=== PATIENT | male | born 1950 | race Hispanic/Latino ===

== ENCOUNTER 2019-06-05 12:18 | Observation (INO) | payer OTHER ==
[2019-06-05 13:22] LABS: Absolute Lymphocytes (CBC) 2.2 K/uL (0.7-4.9); Basophils % 0.9 % (0-1.3); Hematocrit 46.4 % (39.6-49.0); Lymphocytes % 28.9 % (15.3-44.8); MPV 8.9 fL (7.6-11.3); Protime INR 1.04; RBC Red Blood Cell Count 5.29 M/uL (4.33-5.43)
--- NOTE | 2019-06-05 13:37 | RAD REPORT ---
EXAM DESCRIPTION: RAD - Chest Single View - 06/05/2019 1:18 pm CLINICAL HISTORY: CHEST PAIN Chest pain. COMPARISON: CHEST SINGLE VIEW dated 03/17/2013; CHEST PA AND LAT 2 VIEW dated 03/23/2011; CHEST SINGL E VIEW dated 02/12/2011; CHEST SINGLE VIEW dated 11/14/2010 FINDINGS: Portable technique limits examination quality. The lungs are grossly clear. The heart is normal in size. No displaced fractures. IMPRESSION: No acute intrathoracic process suspected.
[2019-06-05 13:38] LABS: ALT/SGPT 34 U/L (12-78); AST/SGOT 21 U/L (15-37); Alkaline Phosphatase 108 U/L (45-117); BUN Blood Urea Nitrogen 13 mg/dL (7-18); Bicarbonate 31 mmol/L (21-32); Bilirubin Direct 0.2 mg/dL (0-0.2); Bilirubin Total 0.7 mg/dL (0.2-1.0); Glucose Level 92 mg/dL (74-106); Magnesium 2.1 mg/dL (1.8-2.4); NT PRO-BNP 74 pg/mL (<125); Potassium 4.1 mmol/L (3.5-5.1); Protein, Total 7.5 g/dL (6.4-8.2); Sodium Level 142 mmol/L (136-145); Troponin (Emerg Dept Use Only) < 0.02 ng/mL (0.0-0.045)
--- NOTE | 2019-06-05 13:43 | RAD REPORT ---
EXAM DESCRIPTION: CT - Head Brain Wo Cont - 06/05/2019 1:35 pm CLINICAL HISTORY: Dizziness;Headache Headache, drowsiness, CVA symptomology COMPARISON: CT HEAD BRAIN WWO CONTRAST dated 03/03/2011; SINUS W O CONTRAST dated 03/03/2011 TECHNIQUE: All CT scans are performed using dose optimization technique as appropriate and may inclu de automated exposure control or mA/KV adjustment according to patient size. FINDINGS: No intracranial hemorrhage, hydrocephalus or extra-axial fluid collection.No areas of brai n edema or evidence of midline shift. The paranasal sinuses and mastoids are clear. The calvarium is intact. IMPRESSION: No acute intracranial abnormality.
[2019-06-05] MEDS ORDERED: DIAZEPAM 5 MG TABLET ONE (15:08)
--- NOTE | 2019-06-05 15:52 | EKG ---
Test Date: 2019-06-05 Test Time: 12:58:03 Attorney Recruiter: CHARO MEASUREMENT RESULTS: Intervals: Rate: 61 [place]: 146 QRSD: 96 QT: 414 QTc: 416 Sullivan: P: 18 [place]: 146 QRS: 0 T: 15 INTERPRETIVE STATEMENTS: Normal sinus rhythm Nonspecific T wave abnormality Abnormal ECG Compared to ECG 03/18/2013 08:11:39 T-wave abnormality now present Incomplete right bundle-branch block no longer present Electronically Signed On 06-05-19 15:51:25 BUSINESS COMPUTERS TEACHER by Rj Elder
--- NOTE | 2019-06-05 16:16 | RAD REPORT ---
EXAM DESCRIPTION: MRI - Brain Wo Cont - 06/05/2019 3:54 pm CLINICAL HISTORY: DIZZINESS, weakness, hypertension COMPARISON: Head Brain Wo Cont dated 06/05/2019 TECHNIQUE: Sagittal T1-weighted images were obtained along with axial PD, heavily T2-weighted and T2 -FLAIR images. Axial DWI and ADC mapping sequences were also obtained along with coronal heavily T2-w eighted images. FINDINGS: No intracranial hemorrhage, mass or acute infarction. There is no edema or shift of midlin e structures. No extra-axial fluid collections. Canas-matter/white matter junction is preserved. Signa l voids are seen as a normal finding in the major intracranial vessels. Patient has minimal hyperinte nse T2 foci scattered in the cerebral white matter. These are consistent with chronic ischemic change . No significant atrophy identified. Ventricles are normal size. No sella or supra sella abnormality. No tonsillar ectopia. No globe or orbital content abnormality se en. Mastoid air cells and paranasal sinuses are clear. IMPRESSION: No infarction changes are present. No mass, hemorrhage or acute intracranial finding. Minimal chronic ischemic change.
[2019-06-05] MEDS ORDERED: MECLIZINE HCL 12.5 MG TAB ONE (16:21)
[2019-06-05] MEDS ORDERED: ONDANSETRON 4 MG/2 ML VIAL ONE (16:21)
[2019-06-05] MEDS ORDERED: DIAZEPAM 10 MG/2 ML INJ SYRINGE ONE (17:43)
--- NOTE | 2019-06-05 18:56 | EDPHYS ---
Physician Documentation [facility] Name: Jaspal Armstrong Age: 68 yrs Sex: Male : 1950 Arrival Date: 06/05/2019 Time: 12:20 Bed 24 Private MD: Tony Juarez ED Physician Robin Rodríguez HPI: 06/05 18:00 This 68 yrs old Male presents to ER via Ambulatory with complaints of Chest kdr Pressure, Dizziness. 18:00 The patient or guardian reports chest pain that is located primarily in the substernal kdr area, anterior chest wall, bilaterally, chest diffusely. Onset: gradually, 1 week(s) ago. The pain does not radiate. Associated signs and symptoms: Pertinent positives: dizziness, The patient has been intermittently dizzy over the past week. He has also had some chest pressure and n/v when there dizziness worsens.. Historical: - Allergies: 12:28 No Known Allergies; ca1 - PMHx: 12:28 Gastric Reflux; Hyperlipidemia; ca1 - PSHx: 12:28 Heart stents; Carpal Tunnel Repair; prostate surgery; cervical spine sx; ca1 - Immunization history:: Adult Immunizations up to date, Flu vaccine is not up to date. - Coronavirus screen:: The patient has NOT traveled to [place], [place], or [place] in the past 14 days. The patient has NOT had contact with known/suspected case of Coronavirus?. - Social history:: Smoking status: Patient denies any tobacco usage or history of. - Ebola Screening: : Patient negative for fever greater than or equal to 101.5 degrees Fahrenheit, and additional compatible Ebola Virus Disease symptoms Patient denies exposure to infectious person Patient denies travel to an Ebola-affected area in the 21 days before illness onset No symptoms or risks identified at this time. ROS: 19:21 Constitutional: Negative for fever, chills, and weight loss, Eyes: Negative for injury, kdr pain, redness, and discharge, ENT: Negative for injury, pain, and discharge, Neck: Negative for injury, pain, and swelling, Respiratory: Negative for shortness of breath, cough, wheezing, and pleuritic chest pain, Abdomen/GI: Negative for abdominal pain, nausea, vomiting, diarrhea, and constipation, Back: Negative for injury and pain, : Negative for injury, bleeding, discharge, and swelling, MS/Extremity: Negative for injury and deformity, Skin: Negative for injury, rash, and discoloration, Psych: Negative for depression, anxiety, suicide ideation, homicidal ideation, and hallucinations, Allergy/Immunology: Negative for hives, rash, and allergies, Endocrine: Negative for neck swelling, polydipsia, polyuria, polyphagia, and marked weight changes, Hematologic/Lymphatic: Negative for swollen nodes, abnormal bleeding, and unusual bruising. 19:21 Cardiovascular: Positive for chest pain, Negative for edema, orthopnea, palpitations, paroxysmal nocturnal dyspnea, acute changes. 19:21 Neuro: Positive for dizziness, Negative for altered mental status, gait disturbance, headache, hearing loss, loss of consciousness, speech changes, syncope, near syncope, tinnitus, tremor, visual changes. Exam: 19:21 Constitutional: This is a well developed, well nourished patient who is awake, alert, kdr and in no acute distress. Head/Face: Normocephalic, atraumatic. Eyes: Pupils equal round and reactive to light, extra-ocular motions intact. Lids and lashes normal. Conjunctiva and sclera are non-icteric and not injected. Cornea within normal limits. Periorbital areas with no swelling, redness, or edema. Neck: Trachea midline, no thyromegaly or masses palpated, and no cervical lymphadenopathy. Supple, full range of motion without nuchal rigidity, or vertebral point tenderness. No Meningismus. Chest/axilla: Normal chest wall appearance and motion. Nontender with no deformity. No lesions are appreciated. Cardiovascular: Regular rate and rhythm with a normal S1 and S2. No gallops, murmurs, or rubs. Normal PMI, no JVD. No pulse deficits. Respiratory: Lungs have equal breath sounds bilaterally, clear to auscultation and percussion. No rales, rhonchi or wheezes noted. No increased work of breathing, no retractions or nasal flaring. Abdomen/GI: Soft, non-tender, with normal bowel sounds. No distension or tympany. No guarding or rebound. No evidence of tenderness throughout. Back: No spinal tenderness. No costovertebral tenderness. Full range of motion. Skin: Warm, dry with normal turgor. Normal color with no rashes, no lesions, and no evidence of cellulitis. MS/ Extremity: Pulses equal, no cyanosis. Neurovascular intact. Full, normal range of motion. Neuro: Awake and alert, GCS 15, oriented to person, place, time, and situation. Cranial nerves II-XII grossly intact. Motor strength 5/5 in all extremities. Sensory grossly intact. Cerebellar exam normal. Normal gait. Psych: Awake, alert, with orientation to person, place and time. Behavior, mood, and affect are within normal limits. Vital Signs: 12:28 BP 126 / 55; Pulse 66; Resp 17 S; Temp 97.9(O); Pulse Ox 97% on R/A; Weight 100.7 kg ca1 (R); Height 5 ft. 4 in. (162.56 cm) (R); Pain 0/10; 13:30 BP 135 / 118; Pulse 63; Resp 15; Pulse Ox 96% on R/A; vc 14:30 BP 115 / 67; Pulse 94; Resp 16; Pulse Ox 94% on R/A; vc 16:00 BP 170 / 88; Pulse 61; Resp 19; Pulse Ox 98% on R/A; vc 17:00 BP 128 / 73; Pulse 59; Resp 19; Pulse Ox 97% on R/A; vc 17:45 BP 136 / 68; Pulse 61; Resp 16; Pulse Ox 94% ; vc 18:30 BP 132 / 65; Pulse 62; Resp 18; Pulse Ox 94% on R/A; vc 19:30 BP 130 / 66; Pulse 59; Pulse Ox 97% on R/A; vc 20:30 BP 135 / 65; Pulse 60; Resp 18; Pulse Ox 94% on R/A; vc 12:28 Body Mass Index 38.11 (100.70 kg, 162.56 cm) ca1 MDM: 18:54 Patient medically screened. kdr 19:20 Data reviewed: vital signs, nurses notes, lab test result(s), radiologic studies. kdr Counseling: I had a detailed discussion with the patient and/or guardian regarding: the historical points, exam findings, and any diagnostic results supporting the discharge/admit diagnosis, lab results, radiology results, the need for further work-up and treatment in the hospital. Physician consultation: Tony Juarez MD regarding admission, to the telemetry unit. and will see patient in inpatient room, tomorrow. Admission orders: after a detailed discussion of the patient's condition and case, the admit orders are written by me. 19:42 Physician consultation: Bebeto Alberto MD was called at 19:43, was contacted at 19:43, [facility] regarding consult, patient's condition, and will see patient in inpatient room, tomorrow, No new orders. 19:43 ED course: James Ronquillo negative - No improvement to right, increased n/v to the left.. [facility] 06/05 12:56 Order name: Basic Metabolic Panel; Complete Time: 15:36 [facility] 06/05 12:56 Order name: CBC with Diff; Complete Time: 15:36 [facility] 06/05 12:56 Order name: LFT's; Complete Time: 15:36 [facility] 06/05 12:56 Order name: Magnesium; Complete Time: 15:36 [facility] 06/05 12:56 Order name: NT PRO-BNP; Complete Time: 15:36 [facility] 06/05 12:56 Order name: PT-INR; Complete Time: 15:36 [facility] 06/05 12:56 Order name: Troponin (emerg Dept Use Only); Complete Time: 15:36 [facility] 06/05 19:04 Order name: Basic Metabolic Panel EDAL 06/05 19:04 Order name: Basic Metabolic Panel EDAL 06/05 19:04 Order name: CBC with Automated Diff EDMS 06/05 19:04 Order name: CBC with Automated Diff EDMS 06/05 19:04 Order name: Troponin I EDAL 06/05 19:04 Order name: Troponin I EDAL 06/05 19:04 Order name: Troponin I EDAL 06/05 12:56 Order name: XRAY Chest (1 view); Complete Time: 15:36 [facility] 06/05 12:56 Order name: EKG; Complete Time: 12:57 [facility] 06/05 13:21 Order name: CT Head Brain wo Cont; Complete Time: 15:36 [facility] 06/05 15:34 Order name: Brain Wo Cont; Complete Time: 16:24 EDAL 06/05 19:03 Order name: Regular EDMS 06/05 19:03 Order name: EKG Electrocardiogram EDMS 06/05 19:03 Order name: EKG Electrocardiogram EDMS 06/05 19:04 Order name: EKG Electrocardiogram EDAL 06/05 19:04 Order name: EKG Electrocardiogram EDAL 06/05 12:56 Order name: Cardiac monitoring; Complete Time: 13:13 [facility] 06/05 12:56 Order name: EKG - Nurse/Tech; Complete Time: 13:13 kdr 06/05 12:56 Order name: IV Saline Lock; Complete Time: 13:13 kdr 06/05 12:56 Order name: Labs collected and sent; Complete Time: 13:13 kdr 06/05 12:56 Order name: O2 Per Protocol; Complete Time: 13:13 kdr 06/05 12:56 Order name: O2 Sat Monitoring; Complete Time: 13:13 kdr EC:59 Rate is 61 beats/min. Rhythm is regular, Normal Sinus Rhythm with No ectopy. QRS [place] kdr is Normal. MS interval is normal. Clinical impression: NSR w/ Non-specific ST/T Changes. Administered Medications: 15:00 Drug: Valium 5 mg Route: PO; vc 16:00 Follow up: Response: No adverse reaction vc 16:20 Drug: Zofran 4 mg Route: IVP; Site: right antecubital; vc 17:00 Follow up: Response: No adverse reaction vc 16:20 Drug: Meclizine 25 mg Route: PO; vc 17:00 Follow up: Response: No adverse reaction vc 17:45 Drug: Valium 5 mg Route: IVP; Site: right antecubital; ls4 18:45 Follow up: Response: No adverse reaction vc 19:59 Drug: Decadron 4 mg Route: IM; Site: right deltoid; vc 20:15 Follow up: Response: No adverse reaction vc 20:22 Drug: Zofran 4 mg Route: IVP; Site: right antecubital; vc 21:00 Follow up: Response: No adverse reaction vc Disposition: 06/05/19 18:54 Hospitalization ordered by Tony Juarez for Observation. Preliminary diagnosis are Chest pain, unspecified, Dizziness and giddiness, Vertigo. - Bed requested for Telemetry/MedSurg (observation). - Status is Observation. vc - Condition is Fair. - Problem is new. - Symptoms have improved. UTI on Admission? No Signatures: Dispatcher [employer] EDMS Robin Rodríguez MD MD kdr Garcia, Cindy, RN RN cg Stewart, Lisa, RN RN ls4 Kristie Wooten RN RN ca1 Calcote, Vanessa, RN RN vc Corrections: (The following items were deleted from the chart) 15:34 13:22 MR STROKE PROTOCOL+MRI.RAD.BRZ ordered. EDMS EDMS 19:41 18:54 Hospitalization Ordered by Tony Juraez MD for Observation. Preliminary cg diagnosis is Chest pain, unspecified; Dizziness and giddiness; Vertigo. Bed requested for Telemetry/MedSurg (observation). Status is Observation. Condition is Fair. Problem is new. Symptoms have improved. UTI on Admission? No. kdr 21:25 19:41 06/05/2019 18:54 Hospitalization Ordered by Tony uJarez MD for Observation. vc Preliminary diagnosis is Chest pain, unspecified; Dizziness and giddiness; Vertigo. Bed requested for Telemetry/MedSurg (observation). Status is Observation. Condition is Fair. Problem is new. Symptoms have improved. UTI on Admission? No. cg
--- NOTE | 2019-06-05 18:56 | ER ---
Nurse's Notes [facility] Name: Jaspal Armstrong Age: 68 yrs Sex: Male : 1950 Arrival Date: 06/05/2019 Time: 12:20 Bed 24 Private MD: Tony Juarez Diagnosis: Chest pain, unspecified;Dizziness and giddiness;Vertigo Presentation: 06/05 12:24 Presenting complaint: Patient states: "Chest discomfort started a week ago. The ca1 dizziness first and then lightheadedness". Reports nausea, denies vomiting. History of stents due to blockage. Transition of care: patient was not received from another setting of care. Onset of symptoms was June 05, 2019. Risk Assessment: Do you want to hurt yourself or someone else? Patient reports no desire to harm self or others. Initial Sepsis Screen: Does the patient meet any 2 criteria? No. Patient's initial sepsis screen is negative. Does the patient have a suspected source of infection? No. Patient's initial sepsis screen is negative. Care prior to arrival: None. 12:24 Method Of Arrival: Ambulatory ca1 12:24 Acuity: MARSHALL 3 ca1 Historical: - Allergies: 12:28 No Known Allergies; ca1 - PMHx: 12:28 Gastric Reflux; Hyperlipidemia; ca1 - PSHx: 12:28 Heart stents; Carpal Tunnel Repair; prostate surgery; cervical spine sx; ca1 - Immunization history:: Adult Immunizations up to date, Flu vaccine is not up to date. - Coronavirus screen:: The patient has NOT traveled to [place], [place], or [place] in the past 14 days. The patient has NOT had contact with known/suspected case of Coronavirus?. - Social history:: Smoking status: Patient denies any tobacco usage or history of. - Ebola Screening: : Patient negative for fever greater than or equal to 101.5 degrees Fahrenheit, and additional compatible Ebola Virus Disease symptoms Patient denies exposure to infectious person Patient denies travel to an Ebola-affected area in the 21 days before illness onset No symptoms or risks identified at this time. Screenin:30 Abuse screen: Denies threats or abuse. Nutritional screening: No deficits noted. vc Tuberculosis screening: No symptoms or risk factors identified. Fall Risk None identified. Assessment: 13:00 General: Appears in no apparent distress. uncomfortable, Behavior is calm, cooperative. vc Pain: Denies pain. Neuro: Level of Consciousness is awake, alert, obeys commands, Oriented to person, place, time, Reports dizziness. Cardiovascular: Capillary refill < 3 seconds Patient's skin is warm and dry. Respiratory: Airway is patent Respiratory effort is even, unlabored. GI: No signs and/or symptoms were reported involving the gastrointestinal system. : No signs and/or symptoms were reported regarding the genitourinary system. EENT:. Derm: Skin is intact, is healthy with good turgor. Musculoskeletal: Circulation, motion, and sensation intact. Range of motion: intact in all extremities. 14:00 Reassessment: Patient and/or family updated on plan of care and expected duration. Pain vc level reassessed. Patient is alert, oriented x 3, equal unlabored respirations, skin warm/dry/pink. Patient is alert/active/playful, equal unlabored respirations, skin warm/dry/pink. 15:00 Reassessment: Patient states that he is a "Little claustrophobic, is there anyway I can vc get something for my MRI." MD notified, 5 mg Valium PO administered per verbal order. 15:15 Reassessment: Patient to MRI via wheelchair. vc 16:15 Reassessment: Patient and/or family updated on plan of care and expected duration. Pain vc level reassessed. Patient is alert, oriented x 3, equal unlabored respirations, skin warm/dry/pink. 17:00 Reassessment: Patient and/or family updated on plan of care and expected duration. Pain vc level reassessed. patient states he is dizzy when moving. 18:00 Reassessment: Patient is alert, oriented x 3, equal unlabored respirations, skin vc warm/dry/pink. Patient denies pain at this time. 19:00 Reassessment: Patient and/or family updated on plan of care and expected duration. Pain vc level reassessed. Patient is alert, oriented x 3, equal unlabored respirations, skin warm/dry/pink. Patient states symptoms have not improved. 20:00 Reassessment: Patient and/or family updated on plan of care and expected duration. Pain vc level reassessed. Patient states the only way to keep from getting nauseous is to lay with his eyes closed. 21:00 Reassessment: Patient and/or family updated on plan of care and expected duration. Pain vc level reassessed. Patient denies pain at this time. Vital Signs: 12:28 BP 126 / 55; Pulse 66; Resp 17 S; Temp 97.9(O); Pulse Ox 97% on R/A; Weight 100.7 kg ca1 (R); Height 5 ft. 4 in. (162.56 cm) (R); Pain 0/10; 13:30 BP 135 / 118; Pulse 63; Resp 15; Pulse Ox 96% on R/A; vc 14:30 BP 115 / 67; Pulse 94; Resp 16; Pulse Ox 94% on R/A; vc 16:00 BP 170 / 88; Pulse 61; Resp 19; Pulse Ox 98% on R/A; vc 17:00 BP 128 / 73; Pulse 59; Resp 19; Pulse Ox 97% on R/A; vc 17:45 BP 136 / 68; Pulse 61; Resp 16; Pulse Ox 94% ; vc 18:30 BP 132 / 65; Pulse 62; Resp 18; Pulse Ox 94% on R/A; vc 19:30 BP 130 / 66; Pulse 59; Pulse Ox 97% on R/A; vc 20:30 BP 135 / 65; Pulse 60; Resp 18; Pulse Ox 94% on R/A; vc 12:28 Body Mass Index 38.11 (100.70 kg, 162.56 cm) ca1 ED Course: 12:20 Patient arrived in ED. rg4 12:21 Tony Juarez MD is Private Physician. rg4 12:26 Triage completed. ca1 12:28 Arm band placed on right wrist. ca1 12:45 Triny Rogers RN is Primary Nurse. vc 12:55 Patient has correct armband on for positive identification. Placed in gown. Bed in low mh5 position. Call light in reach. Side rails up X 1. Adult w/ patient. Warm blanket given. slicing machine feeder on. Pulse ox on. NIBP on. 12:55 Missed attempt(s): 22 gauge in right antecubital area. mh5 12:56 Robin Rodríguez MD is Attending Physician. kdr 13:05 Inserted saline lock: 22 gauge in right antecubital area, using aseptic technique. tm3 13:05 Initial lab(s) drawn, by me, sent to lab. tm3 13:18 XRAY Chest (1 view) In Process Unspecified. EDMS 13:36 CT Head Brain wo Cont In Process Unspecified. EDMS 15:55 Brain Wo Cont In Process Unspecified. EDMS 18:51 Tony Juarez MD is Hospitalizing Provider. kdr 21:20 No provider procedures requiring assistance completed. Patient admitted, IV remains in vc place. Patient maintains SpO2 saturation greater than 95% on room air. Administered Medications: 15:00 Drug: Valium 5 mg Route: PO; vc 16:00 Follow up: Response: No adverse reaction vc 16:20 Drug: Zofran 4 mg Route: IVP; Site: right antecubital; vc 17:00 Follow up: Response: No adverse reaction vc 16:20 Drug: Meclizine 25 mg Route: PO; vc 17:00 Follow up: Response: No adverse reaction vc 17:45 Drug: Valium 5 mg Route: IVP; Site: right antecubital; ls4 18:45 Follow up: Response: No adverse reaction vc 19:59 Drug: Decadron 4 mg Route: IM; Site: right deltoid; vc 20:15 Follow up: Response: No adverse reaction vc 20:22 Drug: Zofran 4 mg Route: IVP; Site: right antecubital; vc 21:00 Follow up: Response: No adverse reaction vc Outcome: 18:54 Decision to Hospitalize by Provider. kdr 21:15 Admitted to Tele accompanied by tech, via wheelchair, with chart, Report called to vc Eileen RN 21:15 Condition: good 21:25 Patient left the ED. vc Signatures: Dispatcher [employer] EDMS Vickey Armenta tm3 Robin Rodríguez MD MD kdr Garcia, Rubi rg4 Martinez, Maria 5 Amelia Rose, PEACE RN ls4 Kristie Wooten RN RN ca1 Triny Rogers RN RN vc Corrections: (The following items were deleted from the chart) 15:37 15:37 Valium 5 mg PO vc vc 15:43 13:00 Reassessment: Patient states that he is a "Little claustrophobic, is there anyway vc I can get something for my MRI." notified, 5 mg Valium PO administered per verbal order. vc 16:33 14:20 Zofran 4 mg IVP in right antecubital vc vc
[2019-06-05] MEDS ORDERED: MECLIZINE HCL 12.5 MG TAB PO PRN (18:59)
[2019-06-05] MEDS ORDERED: ONDANSETRON 4 MG/2 ML VIAL IV PRN (18:59)
[2019-06-05] MEDS ORDERED: ACETAMINOPHEN 500 MG TAB PO PRN (18:59)
[2019-06-05] MEDS ORDERED: METOCLOPRAMIDE 10 MG/2mL INJ ONE (19:39)
[2019-06-05] MEDS ORDERED: dexAMETHasone 4 MG/ML VIAL ONE (19:49)
[2019-06-05 21:39] VITALS: BMI 37.1
[2019-06-06 03:40] LABS: Basophils % 0.3 % (0-1.3); Hematocrit 44.8 % (39.6-49.0); Lymphocytes % 13.9 % (15.3-44.8); MPV 9.6 fL (7.6-11.3); RBC Red Blood Cell Count 5.12 M/uL (4.33-5.43)
[2019-06-06 03:48] LABS: Potassium 4.4 mmol/L (3.5-5.1)
[2019-06-06] MEDS ORDERED: ASPIRIN EC 81 MG TAB PO SCH (09:00)
[2019-06-06] MEDS ORDERED: INFLUENZA VACCINE (for 3y+) 0.5 ML DOSE IMVAC ONE (09:00)
[2019-06-06 09:03] VITALS: O2SAT 96
--- NOTE | 2019-06-06 12:48 | EKG ---
Test Date: 2019-06-06 Test Time: 09:22:22 Inspector Boiler: CHARO MEASUREMENT RESULTS: Intervals: Rate: 72 NH: 144 QRSD: 100 QT: 390 QTc: 427 Lewis: P: 59 NH: 144 QRS: 12 T: 2 INTERPRETIVE STATEMENTS: Normal sinus rhythm RSR' or QR pattern in V1 suggests right ventricular conduction delay Nonspecific T wave abnormality Abnormal ECG Compared to ECG 06/05/2019 12:58:03 RSR' in V1 or V2 now present T-wave abnormality still present Electronically Signed On 06-06-19 12:47:38 CUT TOBACCO BULKER by Vlad Brink
--- NOTE | 2019-06-06 17:55 | RAD REPORT ---
EXAM DESCRIPTION: RAD - C Spine Ap/Lat - 06/06/2019 5:39 pm CLINICAL HISTORY: vertigo Neck pain radiculopathy COMPARISON: SPINE CERVICAL AP LAT dated 03/07/2015; SPINE CERVICAL W OBLIQUES dated 08/14/2013 FINDINGS: Postsurgical changes are present at the midcervical levels in the posterior elements, unch anged.No fracture or acute bony process seen.Disc thinning with small posterior osteophyte noted at C 5-6 and C6-7.The odontoid is normal and the lateral masses are symmetric. No prevertebral soft tissue thickening or other suspicious soft tissue finding. IMPRESSION: Moderate lower cervical spondylosis.
--- NOTE | 2019-06-06 18:23 | RAD REPORT ---
EXAM DESCRIPTION: - CP - 06/06/2019 6:00 pm CLINICAL HISTORY: vertigo Headache, drowsiness COMPARISON: No comparisons TECHNIQUE: Real-time sonographic evaluation of both carotid systems was performed. Doppler interroga tion was performed with waveform tracing bilaterally. FINDINGS: Normal high resistance waveforms are noted in both external carotid arteries. The common c arotid arteries and internal carotid arteries show normal low resistance waveforms. Mild atherosclerotic plaque is present in both carotid bulb, slightly worse on the left. Peak systoli c and end diastolic velocity values and the ICA/CCA ratios are in the non-hemodynamically significant range. Antegrade flow seen in both vertebral arteries. IMPRESSION: Mild atherosclerotic plaquing is present in both carotid bulbs, slightly greater on the left. No evidence of a hemodynamically significant stenosis.
[2019-06-06] MEDS ORDERED: dexAMETHasone 4 MG/ML VIAL IM ONE (21:00)
[2019-06-06] MEDS ORDERED: ZOLPIDEM TARTRATE 5 MG TABLET PO SCH (21:00)
[2019-06-06] MEDS ORDERED: ATORVASTATIN 40 MG TAB PO SCH (21:00)
--- NOTE | 2019-06-07 01:33 | HP ---
Date of Admission: 06/05/2019 Entrance Complaint: Dizziness, nausea, vomiting. History Of Present Illness: The patient presented to the emergency room with the above outlined symp toms. He dated his symptoms back approximately 1 week when he had brief episodes of, what he describ es, as vertigo, less than a minute and long, and turning his head in a certain direction. This reall y happen at work as well as at home. However, the episode that made him present to the emergency manuel m was much more severe, the dizziness was much more noticeable associated with nausea and actually th rew up. He also had some chest discomfort associated with this what he felt possibly was anxiety in etiology. In the event, he was seen in the emergency room and was admitted after being treated in th e emergency room with meclizine and Zofran and Valium was also given. However, he feels most likely improvement from medication was on the last one, which in fact was Decadron 4 mg IM. Past History: Patient has history of coronary artery disease about 10 years ago, had a number of olya nts 3 months ago. He had a stress test, which he stated he passed, not had a prior episode of vertig o. He also has hyperlipidemia. Family History: Noncontributory. Social History: Nonsmoker, nondrinker. Physical Examination: General: Patient is a moderately obese elderly male with stable vital signs. Head and Neck: Normocephalic. Pupils equal and reactive to light and accommodation. Fundi negative . Trachea midline. Thyroid not palpable. ENT: Negative. Chest: Clear to P and A. Cardiovascular: PMI midclavicular line. Heart: Heart sounds normal. Peripheral pulses are present and equal bilaterally. Abdomen: No organomegaly. Bowel sounds present. Extremities: Good tone and movement bilaterally. Reflexes physiologic. Rectal: Deferred. Impression: Acute labyrinthitis, coronary artery disease by history. Plan: Patient will be admitted, observation and telemetry, utilization of the steroids if symptoms p ersist and awaiting troponin levels. HR/MODL Voice ID: [id number]
--- NOTE | 2019-06-07 01:39 | PN ---
Date of Progress Note: 06/06/2019 History: The patient states he feels a little bit better this evening. He only has vertigo when he turns his head to the right. Looking ahead is not a problem and he has had no further vomiting. Min imal amount of nausea. No chest pain. Workup is basically negative. He has had some nonspecific ST changes on his EKG. His MRI and CAT scan of the brain were compatible with age, in fact the latter showed minimal changes I suspect the patient does have episodes of acute labyrinthitis and next steroid shot will be given a gain, and followup will be an x-ray of his neck and we did have surgical procedure there over 10 year s ago of half a portion of his neck, which he states some bony abnormality was fixed and I will do a carotid ultrasound and if these are negative, he probably could be discharged in the a.m. on medicati on. HR/MODL Voice ID: [id number] Report ID: [id number]
[2019-06-07 05:16] VITALS: TEMP 97
[2019-06-07] MEDS ORDERED: PANTOPRAZOLE 40MG TABLET PO SCH (07:30)
[2019-06-07] MEDS ORDERED: ASPIRIN 81 MG CHEWABLE TABLET PO SCH (09:00)
[2019-06-07] MEDS ORDERED: HOME MED 1 EA UNK (Simvastatin [Simvastatin] 80 MG) PO SCH (09:00)
[2019-06-07] MEDS ORDERED: INFLUENZA VACCINE (for 3y+) 0.5 ML DOSE IMVAC ONE (12:00)
[2019-06-07 12:21] VITALS: BP 137/66
--- NOTE | 2019-06-07 15:25 | PN ---
Date of Progress Note: 06/07/2019 Patient states he feels somewhat better today. He can turn his head to the right with some vertigino us response but not near as much as when he came in. The rest of his workup was basically noncontrib utory to the vertigo. His x-ray of his spine showed some expected arthritic changes, which he knew a bout it and Doppler showed good flow. I suspect he had an acute vestibulitis of the nose, and he theresa l be discharged on Antivert 25 mg 3 times a day and prednisone 10 mg x5 days. Told to remain off wor k through Tuesday and we will see him on Tuesday. HR/MODL Voice ID: [id number] Report ID: [id number]
== END 2019-06-07 11:59 | disposition home or self-care (01) ==
LOC: ER 12:18 → ERHOLD 19:16 → 4TH 21:13
PROVIDERS: ADMIT Family Medicine; ATTEND Family Medicine
DX: H83.09 Labyrinthitis, unspecified ear (principal); I25.10 Atherosclerotic heart disease of native coronary artery without angina pectoris; Z95.5 Presence of coronary angioplasty implant and graft; E78.5 Hyperlipidemia, unspecified; E66.9 Obesity, unspecified; Z68.37 Body mass index [BMI] 37.0-37.9, adult; Z23 Encounter for immunization
CPT/HCPCS: 93005 ×2; 85025 ×2; 80048 ×2; 36415; 83735; 85610; 80076; 84484 ×3; 83880; 70450; 71045; 72040; 90471; 93880; 70551; 96375; 96372; 96374; 99285; J2765; Q2035; J3360; J2405 ×2; G0378 ×4; J8597

== ENCOUNTER 2020-04-11 19:38 | Emergency (ER) | payer OTHER ==
--- OUTSIDE RECORDS SUMMARY | 2020-04-11 19:40 | XMS REPORT | Continuity of Care Document ---
:1950 Author Organization [facility] t Address [address] [place] [address] Care Team Providers Name Role Phone Tony Juarez MD Primary Care Physician Nelson Sweet MD Attending Clinician Tony Juarez MD Attending Clinician LUÍS SALCIDO Attending Clinician Unavailable LUÍS SALCIDO Admitting Clinician Unavailable Payers Payer Name Policy Type Policy Effective Date Expiration Source Number Date CIGNA [id number] [facility] [id number] 2019-Pr esentHMO Problems This patient has no known problems. Allergies, Adverse Reactions, Alerts This patient has no known allergies or adverse reactions. Family History Family Member Diagnosis Comments Start Date Stop Date Source Natural brother Coronary artery [place] [facility] disease Natural father Cancer [facility] thodi Natural mother Coronary artery [place]ist disease Social History Social Habit Start Date Stop Date Quantity Comments Source History [facility] Meth odist Alcohol Std Drinks History [facility] odist Alcohol Binge Sex Assigned At [facility] ethodist Tobacco use and 2019-10-02 2019-10-02 Never used [facility] ethodist exposure 00:00:00 00:00:00 Alcohol intake 2019-10-02 2019-10-02 Lifetime [facility] thodist 00:00:00 00:00:00 non-drinker (finding) History [facility] 2019-09-28 2019-09-28 1 [place] [facility] Alcohol Frequency 00:00:00 00:00:00 Smoking Status Start Date Stop Date Source Never smoker [facility] t Medications Ordered Filled Start Stop Current Ordering Indication Dosage Frequency Signature Comments Components Source Medication Medication Date Date Medication? Clinician (SIG) Name Name aspirin 2019-0 Yes 81mg QD Take 81 mg [place] (ECOTRIN) 5-22 by mouth Method i 81 MG 14:13: daily. st enteric 23 coated tablet atorvastati 2020-0 Yes 40mg QD Take 40 mg Gao n (LIPITOR) 5-22 by mouth Meth wicho 40 mg 14:13: daily. st tablet 23 pantoprazol 2020-0 Yes 40mg QD Take 40 mg Gao e 5-22 by mouth Methodi (PROTONIX) 14:13: daily. st 40 MG EC 23 tablet Vital Signs Vital Name Observation Time Observation Value Comments Source Systolic blood 2019-09-28 14:13:00 141 mm[Hg] [place] [facility] pressure Diastolic blood 2019-09-28 14:13:00 68 mm[Hg] [place] [facility] pressure Heart rate 2019-09-28 14:13:00 64 /min [place] [facility] Body temperature 2019-09-28 14:13:00 36.44 Diana [place] [facility] Body height 2019-09-28 14:13:00 162.6 cm [place] [facility] Body weight 2019-09-28 14:13:00 101.923 kg [place] [facility] BMI 2019-09-28 14:13:00 38.57 kg/m2 [place] [facility] Procedures This patient has no known procedures. Plan of Care Planned Activity Planned Date Details Comments Source Future Scheduled 2019-12-08 INFLUENZA VACCINE [place] [facility] Test 00:00:00 [code = INFLUENZA VACCINE] Future Scheduled 2013 65+ PNEUMOCOCCAL [place] [facility] Test 00:00:00 VACCINE (1 of 1 - PPSV23) [code = 65+ PNEUMOCOCCAL VACCINE (1 of 1 - PPSV23)] Future Scheduled 1998 COLONOSCOPY SCREENING [facility] Test 00:00:00 [code = COLONOSCOPY SCREENING] Future Scheduled 1998 SHINGLES VACCINES (#1) H mary [facility] Test 00:00:00 [code = SHINGLES VACCINES (#1)] Encounters Start End Encounter Admission Attending Care Care Encounter Source Date/Time Date/Time Type Type Clinicians Facility Department ID 2019-10-02 2019-10-02 Outpatient AMINA [facility] [id number] [place] 00:00:00 00:00:00 NELSON [address] 2015-06-23 2015-06-23 Outpatient [facility] [id number] [place] 00:00:00 00:00:00 LUÍS Patel [facility] Results This patient has no known results.
--- OUTSIDE RECORDS SUMMARY | 2020-04-11 19:40 | XMS REPORT | Clinical Summary ---
:1950 Author Organization [facility] Address [address] [place] [address] Care Team Providers Name Role Phone Tony Juarez MD Primary Care Provider Allergies No Known Active Allergies Medications Medication Sig Dispensed Refills Start Date End Date Status aspirin (ECOTRIN) 81 MG Take 81 mg by 0 Active enteric coated tablet mouth daily. atorvastatin (LIPITOR) Take 40 mg by 0 Active 40 mg tablet mouth daily. pantoprazole (PROTONIX) Take 40 mg by 0 Active 40 MG EC tablet mouth daily. Active Problems Not on file Encounters Date Type Specialty Care Team Description 11/07/2019 Transcribe Orders Neurology Nelson Sweet MD 10/02/2019 Office Visit Neurology Nelson Sweet MD Benign paro xysmal positional vertigo, unspecified laterality (Primary Dx); Dizziness 10/02/2019 Travel 09/20/2019 Travel 09/20/2019 Transcribe Orders Neurology Tony Juarez MD Diz ziness (Primary Dx) after 04/11/2019 Surgical History Surgery Date Site/Laterality Comments ROTATOR CUFF REPAIR PROSTATE SURGERY CERVICAL SPINE SURGERY CORONARY STENT PLACEMENT Medical History Medical History Date Comments GERD (gastroesophageal reflux disease) SANNA (obstructive sleep apnea) HLD (hyperlipidemia) Prostate cancer (HCC) Family History Medical History Relation Name Comments Coronary artery disease Brother Cancer Father Coronary artery disease Mother Relation Name Status Comments Brother Father Mother Social History Tobacco Use Types Packs/Day Years Used Date Never Smoker Smokeless Tobacco: Never Used Alcohol Use Drinks/Week oz/Week Comments Never Alcohol Habits Answer Date Recorded How often do you have a drink containing alcohol? Never 09/28/2019 How many drinks containing alcohol do you have on a typical Not asked day when you are drinking? How often do you have six or more drinks on one occasion? No t asked Sex Assigned at Date Recorded Not on file Last Filed Vital Signs Vital Sign Reading Time Taken Comments Blood Pressure 141/68 09/28/2019 2:13 PM CDT Pulse 64 09/28/2019 2:13 PM CDT Temperature 36.4 C (97.6 F) 09/28/2019 2:13 PM CDT Respiratory Rate - - Oxygen Saturation - - Inhaled Oxygen Concentration - - Weight 102 kg (224 lb 11.2 oz) 09/28/2019 2:13 PM CDT Height 162.6 cm (5' 4") 09/28/2019 2:13 PM CDT Body Mass Index 38.57 09/28/2019 2:13 PM CDT Plan of Treatment Health Maintenance Due Date Last Done Comments COLONOSCOPY SCREENING 1998 SHINGLES VACCINES (#1) 1998 65+ PNEUMOCOCCAL VACCINE (1 of 1 - PPSV23) 2013 INFLUENZA VACCINE 12/08/2019 06/07/2019 Results Not on fileafter 04/11/2019 Insurance Payer Benefit Plan / Subscriber ID Effective Dates Phone Addre ss Type Group [employer] [id number] [facility] ADV t Advance Directives For more information, please contact: [phone] Type Date 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
--- NOTE | 2020-04-11 21:55 | EDPHYS ---
Physician Documentation [facility] Name: Jaspal Armstrong Age: 69 yrs Sex: Male : 1950 Arrival Date: 04/11/2020 Time: 19:51 Bed 17 Private MD: ED Physician Henry Sabillon HPI: 04/11 23:04 This 69 yrs old Male presents to ER via Ambulatory with complaints of Cough - kb COVID +. 23:04 The patient or guardian reports cough, flu symptoms. Onset: The symptoms/episode kb began/occurred last week. Severity of symptoms: At their worst the symptoms were moderate, in the emergency department the symptoms have improved, markedly. Modifying factors: The symptoms are alleviated by nothing, the symptoms are aggravated by nothing. Associated signs and symptoms: Pertinent positives: fever, sore throat, Pertinent negatives: chest pain, diarrhea, ear ache, nausea, rhinorrhea, vomiting. The patient has not experienced similar symptoms in the past. The patient has been recently seen by a physician:. "I have COVID and I know there's not anything to do for it. I feel like I'm getting better already. My symptoms have been improving. I just signed in because I brought my .". Historical: - Allergies: 20:00 No Known Allergies; lp1 - Home Meds: 20:00 Aspirin Oral [Active]; lp1 - PMHx: 20:00 Gastric Reflux; Hyperlipidemia; Prostate cancer; lp1 - PSHx: 20:00 Neck surgery; Heart stents; prostate surgery; lp1 - Immunization history:: Adult Immunizations up to date, Flu vaccine is up to date. - Social history:: Smoking status: Patient denies any tobacco usage or history of. ROS: 23:04 Cardiovascular: Negative for chest pain, palpitations, and edema, Abdomen/GI: Negative kb for abdominal pain, nausea, vomiting, diarrhea, and constipation, MS/Extremity: Negative for injury and deformity, Skin: Negative for injury, rash, and discoloration, Neuro: Negative for headache, weakness, numbness, tingling, and seizure. 23:04 Constitutional: Positive for body aches, chills, fatigue, fever, malaise. 23:04 Respiratory: Positive for cough, Negative for dyspnea on exertion, hemoptysis, orthopnea, pleurisy, shortness of breath, sputum production, wheezing. Exam: 23:04 Constitutional: This is a well developed, well nourished patient who is awake, alert, kb and in no acute distress. Head/Face: Normocephalic, atraumatic. Skin: Warm, dry with normal turgor. Normal color with no rashes, no lesions, and no evidence of cellulitis. MS/ Extremity: Pulses equal, no cyanosis. Neurovascular intact. Full, normal range of motion. Neuro: Awake and alert, GCS 15, oriented to person, place, time, and situation. Cranial nerves II-XII grossly intact. Motor strength 5/5 in all extremities. Sensory grossly intact. Cerebellar exam normal. Normal gait. 23:04 Respiratory: the patient does not display signs of respiratory distress, Respirations: normal. Vital Signs: 20:00 BP 153 / 81; Pulse 65; Resp 20; Temp 98.5(O); Pulse Ox 96% on R/A; Weight 117.93 kg; lp1 Height 5 ft. 4 in. (162.56 cm); Pain 0/10; 20:00 Body Mass Index 44.63 (117.93 kg, 162.56 cm) lp1 MDM: 21:42 Patient medically screened. kb 21:53 Data reviewed: vital signs, nurses notes. Data interpreted: Pulse oximetry: on room air kb is 96 %. Interpretation: normal. Counseling: I had a detailed discussion with the patient and/or guardian regarding: the historical points, exam findings, and any diagnostic results supporting the discharge/admit diagnosis, radiology results, the need for outpatient follow up, a family practitioner, to return to the emergency department if symptoms worsen or persist or if there are any questions or concerns that arise at home. 04/11 21:01 Order name: Chest Single View XRAY kb Administered Medications: No medications were administered Disposition: 04/12 06:29 Co-signature as Attending Physician, Henry Sabillon MD. [email or web address] Disposition: 04/11/20 21:54 Discharged to Home. Impression: Coronavirus infection, unspecified. - Condition is Stable. - Discharge Instructions: COVID-19. - Medication Reconciliation Form, Thank You Letter, Antibiotic Education, Prescription Opioid Use form. - Follow up: Emergency Department; When: As needed; Reason: Worsening of condition. Follow up: Private Physician; When: 2 - 3 days; Reason: Recheck today's complaints, Continuance of care, Re-evaluation by your physician. Signatures: Dispatcher [employer] EDArmida Marie, Henry Amador MD MD pkl Pena, Laura, RN RN lp1 Felix Birmingham RN RN jb4 Corrections: (The following items were deleted from the chart) 04/11 22:14 21:54 04/11/2020 21:54 Discharged to Home. Impression: Coronavirus infection, jb4 unspecified. Condition is Stable. Forms are Medication Reconciliation Form, Thank You Letter, Antibiotic Education, Prescription Opioid Use. Follow up: Emergency Department; When: As needed; Reason: Worsening of condition. Follow up: Private Physician; When: 2 - 3 days; Reason: Recheck today's complaints, Continuance of care, Re-evaluation by your physician. kb
--- NOTE | 2020-04-11 21:55 | ER ---
Nurse's Notes [facility] Name: Jaspal Armstrong Age: 69 yrs Sex: Male : 1950 Arrival Date: 04/11/2020 Time: 19:51 Bed 17 Private MD: Diagnosis: Coronavirus infection, unspecified Presentation: 04/11 19:55 Chief complaint: Patient states: tested COVID positive today at [facility] 1 symptoms of cough, diarrhea, body aches that began 1 week ago; reports continued diarrhea and cough with fatigue; Denies fever; reports minimal shortness of breath with exertion. Coronavirus screen: Client presents with at least one sign or symptom that may indicate coronavirus-19. Standard/surgical mask placed on the client. Client reports previous positive COVID test result. Date of collection: April 11, 2020. Ebola Screen: No symptoms or risks identified at this time. Risk Assessment: Do you want to hurt yourself or someone else? Patient reports no desire to harm self or others. Onset of symptoms was April 11, 2020. 19:55 Method Of Arrival: Ambulatory lp1 19:55 Acuity: MARSHALL 3 lp1 20:00 Initial Sepsis Screen: Does the patient meet any 2 criteria? No. Patient's initial lp1 sepsis screen is negative. Does the patient have a suspected source of infection? No. Patient's initial sepsis screen is negative. Historical: - Allergies: 20:00 No Known Allergies; lp1 - Home Meds: 20:00 Aspirin Oral [Active]; lp1 - PMHx: 20:00 Gastric Reflux; Hyperlipidemia; Prostate cancer; lp1 - PSHx: 20:00 Neck surgery; Heart stents; prostate surgery; lp1 - Immunization history:: Adult Immunizations up to date, Flu vaccine is up to date. - Social history:: Smoking status: Patient denies any tobacco usage or history of. Screenin:03 Abuse screen: Denies threats or abuse. Denies injuries from another. Nutritional lp1 screening: No deficits noted. Tuberculosis screening: No symptoms or risk factors identified. 22:13 Fall Risk None identified. jb4 Assessment: 22:13 General: Appears in no apparent distress. comfortable, Behavior is calm, cooperative, jb4 appropriate for age. Pain: Denies pain. Neuro: Level of Consciousness is awake, alert, obeys commands, Oriented to person, place, time, situation. Cardiovascular: Patient's skin is warm and dry. Respiratory: Airway is patent Respiratory effort is even, unlabored, Respiratory pattern is regular, symmetrical. GI: No signs and/or symptoms were reported involving the gastrointestinal system. : No signs and/or symptoms were reported regarding the genitourinary system. EENT: No signs and/or symptoms were reported regarding the EENT system. Derm: Skin is intact, Skin is pink, warm \T\ dry. Musculoskeletal: Circulation, motion, and sensation intact. Range of motion: intact in all extremities. Vital Signs: 20:00 BP 153 / 81; Pulse 65; Resp 20; Temp 98.5(O); Pulse Ox 96% on R/A; Weight 117.93 kg; lp1 Height 5 ft. 4 in. (162.56 cm); Pain 0/10; 20:00 Body Mass Index 44.63 (117.93 kg, 162.56 cm) lp1 ED Course: 19:51 Patient arrived in ED. cl3 19:59 Triage completed. lp1 19:59 Arm band placed on left wrist. lp1 21:02 Armida Urbano FNP-C is PHCP. kb 21:02 Henry Sabillon MD is Attending Physician. kb 21:54 Felix Birmingham, RN is Primary Nurse. jb4 22:13 Patient has correct armband on for positive identification. Bed in low position. Call jb4 light in reach. Side rails up X 1. 22:13 No provider procedures requiring assistance completed. Patient did not have IV access jb4 during this emergency room visit. 22:19 Chest Single View XRAY In Process Unspecified. EDMS Administered Medications: No medications were administered Outcome: 21:54 Discharge ordered by MD. kb 22:13 Discharged to home ambulatory, with family. jb4 22:13 Condition: stable 22:13 Discharge instructions given to patient, family, Instructed on discharge instructions, follow up and referral plans. Demonstrated understanding of instructions, follow-up care. 22:14 Patient left the ED. jb4 Signatures: Dispatcher [employer] EDMS Armida Urbano FNP-C FNP-Ckb Pena, Laura, RN RN lp1 Felix Birmingham, RN RN jb4 Darryn Balbuena cl3
--- NOTE | 2020-04-12 08:57 | RAD REPORT ---
EXAM DESCRIPTION: Mary Single View04/11/2020 10:18 pm CLINICAL HISTORY: Cough COMPARISON: May 2019 FINDINGS: The lungs appear clear of acute infiltrate. The heart is normal size IMPRESSION: No acute abnormalities displayed
[2020-04-16 23:11] VITALS: BP 153/81; TEMP 98.5; O2SAT 96
== END 2020-04-11 22:14 | disposition home or self-care (01) ==
LOC: ER 19:38
DX: U07.1 COVID-19 (principal); Z79.82 Long term (current) use of aspirin; Z85.46 Personal history of malignant neoplasm of prostate; Z95.818 Presence of other cardiac implants and grafts
CPT/HCPCS: 71045; 99283

== ENCOUNTER 2020-04-27 18:38 | Emergency (ER) | payer OTHER ==
--- OUTSIDE RECORDS SUMMARY | 2020-04-27 18:40 | XMS REPORT | Continuity of Care Document ---
:1950 Author Organization [facility] t Address [address] [place] [address] Care Team Providers Name Role Phone Tony Juarez MD Primary Care Physician Nelson Sweet MD Attending Clinician Tony Juarez MD Attending Clinician LUÍS SALCIDO Attending Clinician Unavailable LUÍS SALCIDO Admitting Clinician Unavailable Payers Payer Name Policy Type Policy Effective Date Expiration Source Number Date CIGNA [id number] 2019 [facility] [id number] 2019-Pr esentHMO Problems This patient has no known problems. Allergies, Adverse Reactions, Alerts This patient has no known allergies or adverse reactions. Family History Family Member Diagnosis Comments Start Date Stop Date Source Natural brother Coronary artery [place] Cong[facility] disease Natural father Cancer [facility] thodi Natural mother Coronary artery [place] Congregational disease Social History Social Habit Start Date Stop Date Quantity Comments Source History [facility] Meth odist Alcohol Std Drinks History [facility] Meth odist Alcohol Binge Sex Assigned At [facility] ethodist Tobacco use and 2019-10-02 2019-10-02 Never used [facility] ethodist exposure 00:00:00 00:00:00 Alcohol intake 2019-10-02 2019-10-02 Lifetime [facility] thodist 00:00:00 00:00:00 non-drinker (finding) History [facility] 2019-09-28 2019-09-28 1 [place] [facility] Alcohol Frequency 00:00:00 00:00:00 Smoking [...] Source Systolic blood 2019-09-28 14:13:00 141 mm[Hg] [place] [facility] pressure Diastolic blood 2019-09-28 14:13:00 68 mm[Hg] [place] [facility] pressure Heart rate 2019-09-28 14:13:00 64 /min [place] [facility] Body temperature 2019-09-28 14:13:00 36.44 Diana [place] [facility] Body height 2019-09-28 14:13:00 162.6 cm [place] [facility] Body weight 2019-09-28 14:13:00 101.923 kg [place] [facility] BMI 2019-09-28 14:13:00 38.57 kg/m2 [place] [facility] Procedures This patient has no known procedures. Plan of Care Planned Activity Planned Date Details Comments Source Future Scheduled 2019-12-08 INFLUENZA VACCINE [place] [facility] Test 00:00:00 [code = INFLUENZA VACCINE] Future Scheduled 2013 65+ PNEUMOCOCCAL [facility] Test 00:00:00 VACCINE (1 of 1 - PPSV23) [code = 65+ PNEUMOCOCCAL VACCINE (1 of 1 - PPSV23)] Future Scheduled 1998 COLONOSCOPY SCREENING [facility]regational Test 00:00:00 [code = COLONOSCOPY SCREENING] Future Scheduled 1998 SHINGLES VACCINES (#1) H mary [facility] Test 00:00:00 [code = SHINGLES VACCINES (#1)] Future Scheduled 1964 COVID-19 VACCINE (#1) Ho [facility]regational Test 00:00:00 [code = COVID-19 VACCINE (#1)] Encounters Start End Encounter Admission Attending Care Care Encounter Source Date/Time Date/Time Type Type Clinicians Facility Department ID 2019-10-02 2019-10-02 Outpatient AMINA [facility] [id number] [place] 00:00:00 00:00:00 NELSON [address] [facility] [address] 2015-06-23 2015-06-23 [facility] [id number] [place] 00:00:00 00:00:00 LUÍS Patel [facility] Results This patient has no known results.
--- OUTSIDE RECORDS SUMMARY | 2020-04-27 18:40 | XMS REPORT | Clinical Summary ---
:1950 Author Organization [facility] Address [address] [place] [address] Care Team Providers Name Role Phone Tony [...] Juarez MD Diz ziness (Primary Dx) after 04/27/2019 Surgical History Surgery Date Site/Laterality Comments ROTATOR [...] Health Maintenance Due Date Last Done Comments COVID-19 VACCINE (#1) 1964 COLONOSCOPY SCREENING 1998 SHINGLES VACCINES (#1) 1998 65+ PNEUMOCOCCAL VACCINE (1 of 1 - PPSV23) 2013 INFLUENZA VACCINE 12/08/2019 06/07/2019 Results Not on fileafter 04/27/2019 Insurance Payer Benefit Plan / Subscriber ID Effective Dates Phone Addre ss Type Group [employer] [id number] 2019-Presen O HMO MCR ADV t Advance Directives For more information, please contact: [phone] Type Date 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
--- NOTE | 2020-04-27 20:12 | ER ---
Nurse's Notes [facility] Name: Jaspal Armstrong Age: 69 yrs Sex: Male : 1950 Arrival Date: 04/27/2020 Time: 18:39 Bed 23 Private MD: Tony Juarez Diagnosis: Laceration without foreign body of unspecified thumb without damage to nail-right Presentation: 04/27 19:20 Chief complaint: Patient states: Accidentally cut right hand 1st digit on open can in ll1 trash can 30 min [employer]. Bleeding controlled. States he put some powder on it to help stop the bleeding. Coronavirus screen: Client denies travel out of the [place] in the last 14 days. At this time, the client does not indicate any symptoms associated with coronavirus-19. Ebola Screen: Patient denies travel to an Ebola-affected area in the 21 days before illness onset. Initial Sepsis Screen: Does the patient meet any 2 criteria? No. Patient's initial sepsis screen is negative. Does the patient have a suspected source of infection? Yes: Skin breakdown/wound. Risk Assessment: Do you want to hurt yourself or someone else? Patient reports no desire to harm self or others. Onset of symptoms was April 27, 2020. 19:20 Method Of Arrival: Ambulatory 1 19:20 Acuity: MARSHALL 4 ll1 Historical: - Allergies: 19:24 No Known Allergies; ll1 - PMHx: 19:24 Gastric Reflux; Hyperlipidemia; Prostate Cancer; heart disease; ll1 - PSHx: 19:24 Neck surgery; Heart stents; prostate surgery; spinal sx; ll1 - Immunization history:: Last tetanus immunization: unknown, Flu vaccine is up to date. - Social history:: Smoking status: Patient denies any tobacco usage or history of. Screenin:44 Abuse screen: Denies threats or abuse. Nutritional screening: No deficits noted. ll1 Tuberculosis screening: No symptoms or risk factors identified. Fall Risk None identified. Total Mejia Fall Scale indicates No Risk (0-24 pts). Assessment: 19:43 General: Appears in no apparent distress. Behavior is calm, cooperative, appropriate ll1 for age. Pain: Denies pain. Neuro: No deficits noted. Cardiovascular: No deficits noted. Respiratory: No deficits noted. Derm: Wound noted R thumb Wound is <3 cm laceration across R thumb, bleeding controlled. Reports laceration R hand 1st digit. Injury Description: Laceration. 20:08 Reassessment: Patient appears in no apparent distress at this time. No changes from dm5 previously documented assessment. Patient and/or family updated on plan of care and expected duration. Pain level reassessed. Patient is alert, oriented x 3, equal unlabored respirations, skin warm/dry/pink. Vital Signs: 19:20 BP 146 / 100; Pulse 63; Resp 18; Temp 98.7; Pulse Ox 100% on R/A; Weight 97.07 kg; ll1 Height 5 ft. 4 in. (162.56 cm); Pain 0/10; 19:20 Body Mass Index 36.73 (97.07 kg, 162.56 cm) ll1 ED Course: 18:39 Patient arrived in ED. rg4 18:39 Tony Juarez MD is Private Physician. rg4 19:18 [facility]anes [facility]. cp 19:18 Niko Hinojosa MD is Attending Physician. cp 19:23 Triage completed. ll1 19:24 Arm band placed on. ll1 19:44 Patient has correct armband on for positive identification. Bed in low position. Call ll1 light in reach. Side rails up X 1. Cardiac monitoring not applicable on this patient. 19:45 Radha Ocampo, PEACE is Primary Nurse. dm5 20:08 No provider procedures requiring assistance completed. Patient did not have IV access dm5 during this emergency room visit. Wound care: to laceration located on palmar aspect of distal phalanx of right thumb was cleaned with Hibiclens, dressed with Kerlix, nonadherent bandage. Administered Medications: 20:17 Drug: Tetanus-Diphtheria Toxoid Adult 0.5 ml {Captain Assistant: Vidcaster. Exp: dm5 08/23/2021. Lot #: [id number]. } Route: IM; Site: right deltoid; Outcome: 20:11 Discharge ordered by . cp 20:31 Patient left the ED. dm5 Signatures: Radha Ocampo, RN RN 5 Dylan Yanes PA PA Radha Loza rg4 Juan Balbuena RN RN 1
--- NOTE | 2020-04-27 20:12 | EDPHYS ---
Physician Documentation [facility] Name: Jaspal Armstrong Age: 69 yrs Sex: Male : 1950 Arrival Date: 04/27/2020 Time: 18:39 Bed 23 Private MD: Tony Juarez ED Physician Niko Hinojosa HPI: 04/27 19:55 This 69 yrs old Male presents to ER via Ambulatory with complaints of Thumb cp Laceration. 19:55 The patient or guardian reports a laceration. The complaints affect the palmar aspect cp of distal phalanx of right thumb. 19:55 Context: occurred after contact with sharp edge of can. Onset: The symptoms/episode cp began/occurred today. Patient reports placing powder over wound to stop bleeding. Historical: - Allergies: 19:24 No Known Allergies; ll1 - PMHx: 19:24 Gastric Reflux; Hyperlipidemia; Prostate Cancer; heart disease; ll1 - PSHx: 19:24 Neck surgery; Heart stents; prostate surgery; spinal sx; ll1 - Immunization history:: Last tetanus immunization: unknown, Flu vaccine is up to date. - Social history:: Smoking status: Patient denies any tobacco usage or history of. ROS: 20:00 Skin: Positive for laceration(s), of the palmar aspect of distal phalanx of right thumb.cp 20:00 All other systems are negative. cp Exam: 20:03 Constitutional: The patient appears in no acute distress, alert, awake, well developed, cp well nourished. 20:03 Skin: cellulitis, is not appreciated, injury, laceration(s), that can be described as cp no foreign body, without bleeding, covered with black colored substance. Vital Signs: 19:20 BP 146 / 100; Pulse 63; Resp 18; Temp 98.7; Pulse Ox 100% on R/A; Weight 97.07 kg; ll1 Height 5 ft. 4 in. (162.56 cm); Pain 0/10; 19:20 Body Mass Index 36.73 (97.07 kg, 162.56 cm) ll1 MDM: 19:34 Patient medically screened. cp 20:05 Differential diagnosis: simple laceration, tendon injury, open fracture. cp 20:10 Data reviewed: vital signs, nurses notes, and as a result, I will discharge patient. cp 20:10 Counseling: I had a detailed discussion with the patient and/or guardian regarding: the cp historical points, exam findings, and any diagnostic results supporting the discharge/admit diagnosis, to return to the emergency department if symptoms worsen or persist or if there are any questions or concerns that arise at home. 04/27 19:51 Order name: Wound Care: clean and irrigate, dress wound; Complete Time: 20:10 cp Administered Medications: 20:17 Drug: Tetanus-Diphtheria Toxoid Adult 0.5 ml {[employer] Machine Operator: M.Setek. Exp: dm5 08/23/2021. Lot #: [id number]. } Route: IM; Site: right deltoid; Disposition: 20:20 Chart complete. 04/28 02:55 Co-signature as Attending Physician, Niko Hinojosa MD. mh7 Disposition: 04/27/20 20:11 Discharged to Home. Impression: Laceration without foreign body of unspecified thumb without damage to nail - right. - Condition is Stable. - Discharge Instructions: Laceration Care, Adult. - Prescriptions for Keflex 500 mg Oral Capsule - take 1 capsule by ORAL route every 8 hours for 10 days; 30 capsule. - Medication Reconciliation Form, Thank You Letter, Antibiotic Education, Prescription Opioid Use form. - Follow up: Private Physician; When: 2 - 3 days; Reason: Worsening of condition. - Problem is new. - Symptoms have improved. Signatures: Radha Ocampo RN RN dm5 Dylan Yanes PA PA cp Juan Balbuena RN RN ll1 Niko Hinojosa MD MD mh7 Corrections: (The following items were deleted from the chart) 04/27 20:31 20:11 04/27/2020 20:11 Discharged to Home. Impression: Laceration without foreign body dm5 of unspecified thumb without damage to nail - right. Condition is Stable. Forms are Medication Reconciliation Form, Thank You Letter, Antibiotic Education, Prescription Opioid Use. Follow up: Private Physician; When: 2 - 3 days; Reason: Worsening of condition. Problem is new. Symptoms have improved. cp
[2020-04-27] MEDS ORDERED: TETANUS & DIPHTHERIA TOX,ADULT 0.5 ML VIAL ONE (20:27)
== END 2020-04-27 20:31 | disposition home or self-care (01) ==
LOC: ER 18:38
DX: S61.011A Laceration without foreign body of right thumb without damage to nail, initial encounter (principal); W26.8XXA Contact with other sharp object(s), not elsewhere classified, initial encounter; Y93.9 Activity, unspecified; Y92.9 Unspecified place or not applicable; Z23 Encounter for immunization
CPT/HCPCS: 90471; 90714; 99283

== ENCOUNTER 2020-07-28 10:04 | Day surgery (SDC) | payer OTHER ==
[2020-07-25 12:17] LABS: Absolute Lymphocytes (CBC) 2.2 K/uL (0.7-4.9); Basophils % 0.9 % (0-1.3); Hematocrit 48.4 % (39.6-49.0); Lymphocytes % 26.4 % (15.3-44.8); MPV 8.6 fL (7.6-11.3); RBC Red Blood Cell Count 5.53 M/uL (4.33-5.43)
[2020-07-25 12:38] LABS: Protime INR 0.95
[2020-07-25 13:05] LABS: Potassium 4.3 mmol/L (3.5-5.1)
[2020-07-28] MEDS ORDERED: NA CHLORIDE 0.9% 500 ML ONE (10:36)
[2020-07-28] MEDS ORDERED: MIDAZOLAM HCL 2 MG/2 ML INJ ONE (13:07)
[2020-07-28] MEDS ORDERED: FENTANYL CITR 100 MCG/2 ML ONE (13:07)
[2020-07-28] MEDS ORDERED: HEPARIN 5000 UNIT/ML 1 ML VIAL ONE (13:07)
[2020-07-28] MEDS ORDERED: TICAGRELOR 90 MG TABLET PO ONE (13:08)
[2020-07-28] MEDS ORDERED: ATROPINE SULF 1 MG/10 ML SYR IV ONE (13:08)
[2020-07-28] MEDS ORDERED: VERAPAMIL HCL 10 MG/4 ML VIAL IV ONE (13:08)
[2020-07-28] MEDS ORDERED: HEPA 1000U/500MLS 2,000 UNIT/1,000 ML BAG IV ONE (13:16)
--- NOTE | 2020-07-28 16:04 | OP ---
Date of Procedure: 07/28/2020 Surgeon: CHRISTINE ARCEO Procedures Performed: 1.Selective coronary angiogram. 2.Percutaneous coronary intervention of severe proximal LAD stenosis using 3.0 x 20 mm Synergy drug- eluting stent overlapped proximally using 3.5 x 12 mm Synergy drug-eluting stent that was inflated to high pressures with size of 3.8 mm. Access: Right radial artery 6-Dutch closed with TR band. Indication: Unstable angina. Complications: None. Bleeding: Less than 5 mL. Description Of Procedure: After risks, benefits, and alternatives were explained, the patient agreed to the procedure and signed informed consent. The patient was brought into the cardiac catheterizat ion laboratory, prepped and draped in usual sterile fashion. Then, we used fentanyl and Versed in in cremental doses to achieve adequate moderate sedation. Then, we accessed right radial artery using [facility] micropuncture kit and a 6-Dutch slender sheath. We took a 5-Dutch tiger 4.0 catheter into the aortic root over a J-wire, engaged left main and right coronary artery and took standard views. Intervention Details: We gave systemic heparin to assure ACT level above 250 and give a load of Bril inta 180 and the patient already has taken aspirin today. We proceeded with EBU3.5 6-Dutch guide in to the aortic root, engaged left main and then took a short Run-Through wire into the LAD and across the stenotic area, and lesion was pre-dilated with a Compliant balloon 3.0 x 12 mm and then we took a 3.0 x 20 mm Synergy drug-eluting stent across the distal portion of the lesion in the LAD and then o verlapped it with a 3.5 x 12 mm Synergy drug-eluting stent and then inflated to high pressure with a size of 3.8 mm with excellent results of RY-3 flow and no residual stenosis. I then removed the wi re and the guide and sheath and placed TR band with hemostasis. Findings: 1.Left main is normal. 2.LAD; proximal 80% disease, status post successful PCI as above. 3.Left circumflex is normal. 4.RCA; large dominant with mid 80% stenosis. Conclusions: 1.Severe proximal LAD disease, status post PCI as above. 2.Severe mid RCA disease that will be staged due to the load of contrast used today for this procedu re. We will plan to do a staged PCI of mid RCA in about 2-3 weeks. Plan: 1.Brilinta, aspirin, and statin. 2.Staged PCI of mid RCA in 2 weeks due to the contrast load. SR/MODL Voice ID: [id number] Report ID: [id number]
[2020-07-28 17:11] VITALS: TEMP 97.2
[2020-07-28 18:39] VITALS: BP 123/82; O2SAT 100
== END 2020-07-28 18:10 | disposition home or self-care (01) ==
LOC: CCL 10:04
PROVIDERS: ATTEND Internal Medicine
DX: I25.110 Atherosclerotic heart disease of native coronary artery with unstable angina pectoris (principal); I70.213 Atherosclerosis of native arteries of extremities with intermittent claudication, bilateral legs; I65.23 Occlusion and stenosis of bilateral carotid arteries; E78.2 Mixed hyperlipidemia; Z95.5 Presence of coronary angioplasty implant and graft; Z20.822 Contact with and (suspected) exposure to COVID-19; Z82.49 Family history of ischemic heart disease and other diseases of the circulatory system
CPT/HCPCS: 85025; 80048; 36415; 85610; 85730; 93454; U0003; C1893; C1725; C9600; J1644 ×2; J2250; J3010; J7040; 85347

== ENCOUNTER 2020-08-10 19:11 | Inpatient (IN) | payer OTHER ==
--- OUTSIDE RECORDS SUMMARY | 2020-08-10 19:13 | XMS REPORT | Continuity of Care Document ---
:1950 Author Organization [facility] t Address [address] [place] [address] [address] [place] [address] Care Team Providers Name Role Phone ANA HUYNH Attending Clinician Unavailable LUÍS SALCIDO Attending Clinician Unavailable LUÍS SALCIDO Admitting Clinician Unavailable Problems This patient has no known problems. Allergies, Adverse Reactions, Alerts This patient has no known allergies or adverse reactions. Medications This patient has no known medications. Procedures This patient has no known procedures. Encounters Start End Encounter Admission Attending Care Care Encounter Source Date/Time Date/Time Type Type Clinicians Facility Department ID 2019-10-02 2019-10-02 Outpatient [facility] [id number] 00:00:00 00:00:00 ANA [address] 2015-06-23 2015-06-23 [id number] 00:00:00 00:00:00 LUÍS [address] Results This patient has no known results.
--- NOTE | 2020-08-10 20:17 | RAD REPORT ---
EXAM DESCRIPTION: RAD - Chest Single View - 08/10/2020 7:50 pm CLINICAL HISTORY: CHEST PAIN Chest pain. COMPARISON: Chest Single View dated 04/11/2020; Chest Single View dated 06/05/2019; CHEST SINGLE VIEW dated 03/17/2013; CHEST PA AND LAT 2 VIEW dated 03/23/2011 FINDINGS: Portable technique limits examination quality. The lungs are grossly clear. The heart is normal in size. No displaced fractures. IMPRESSION: No acute intrathoracic process suspected.
[2020-08-10 20:27] LABS: Absolute Lymphocytes (CBC) 1.9 K/uL (0.7-4.9); Basophils % 0.9 % (0-1.3); Hematocrit 43.3 % (39.6-49.0); Lymphocytes % 27.3 % (15.3-44.8); MPV 8.4 fL (7.6-11.3); RBC Red Blood Cell Count 4.96 M/uL (4.33-5.43)
[2020-08-10 20:36] LABS: Protime INR 1.03
--- NOTE | 2020-08-10 20:37 | ER ---
Nurse's Notes [facility] Name: Jaspal Armstrong Age: 69 yrs Sex: Male : 1950 Arrival Date: 08/10/2020 Time: 19:16 Bed 7 Private MD: Tony Juarez Diagnosis: Angina pectoris Presentation: 08/10 19:25 Chief complaint: Patient states: after i put water in my wind shield I started to have rr5 chest pressure, difficulty of breathing and feels nauseated. 19:25 Coronavirus screen: Client denies travel out of the [place] in the last 14 days. At this rr5 time, the client does not indicate any symptoms associated with coronavirus-19. Ebola Screen: Patient negative for fever greater than or equal to 101.5 degrees Fahrenheit, and additional compatible Ebola Virus Disease symptoms Patient denies exposure to infectious person. Patient denies travel to an Ebola-affected area in the 21 days before illness onset. Initial Sepsis Screen: Does the patient meet any 2 criteria? No. Patient's initial sepsis screen is negative. Does the patient have a suspected source of infection? No. Patient's initial sepsis screen is negative. Risk Assessment: Do you want to hurt yourself or someone else? Patient reports no desire to harm self or others. Onset of symptoms was August 10, 2020 at 18:30. 19:25 Method Of Arrival: Ambulatory rr5 19:25 Acuity: MARSHALL 3 rr5 19:25 Note 2 weeks ago I had my heart stent procedure then tomorrow i am schedule for another rr5 heart stent procedure as stated by patient. Historical: - Allergies: 19:30 No Known Allergies; rr5 - Home Meds: 19:30 Aspirin Oral [Active]; rr5 - PMHx: 19:30 Gastric Reflux; heart disease; Hyperlipidemia; Prostate Cancer; rr5 - PSHx: 19:30 Heart stents; prostate removal; spinal cord surgery; rr5 - Immunization history:: Adult Immunizations up to date, Client reports receiving the 2nd dose of the Covid vaccine, Date received: June 2020. - Social history:: Smoking status: unknown. Screenin:45 Abuse screen: Denies threats or abuse. Nutritional screening: No deficits noted. rr5 Tuberculosis screening: No symptoms or risk factors identified. Fall Risk None identified. Assessment: 19:45 General: Appears in no apparent distress. comfortable, Behavior is calm, cooperative, jb4 appropriate for age. Pain: Complains of pain in chest Pain does not radiate. Pain currently is 1 out of 10 on a pain scale. Quality of pain is described as pressure, Pain began Earlier this morning. Neuro: Level of Consciousness is awake, alert, obeys commands, Oriented to person, place, time, situation. Neuro: Level of Consciousness is awake, alert, obeys commands, Oriented to person, place, time, situation. Cardiovascular: Patient's skin is warm and dry. Rhythm is sinus rhythm. Respiratory: Airway is patent Respiratory effort is even, unlabored, Respiratory pattern is regular, symmetrical. GI: No signs and/or symptoms were reported involving the gastrointestinal system. : No signs and/or symptoms were reported regarding the genitourinary system. EENT: No signs and/or symptoms were reported regarding the EENT system. Derm: Skin is intact, Skin is pink, warm \T\ dry. Musculoskeletal: Circulation, motion, and sensation intact. Range of motion: intact in all extremities. 20:30 Reassessment: Patient appears in no apparent distress at this time. Patient and/or jb4 family updated on plan of care and expected duration. Pain level reassessed. Patient is alert, oriented x 3, equal unlabored respirations, skin warm/dry/pink. 21:33 Reassessment: Received verbal order from Dr. Austin via telephone to keep patient NPO jb4 after midnight, updated on current pt status. 22:00 Reassessment: Patient appears in no apparent distress at this time. Patient and/or jb4 family updated on plan of care and expected duration. Pain level reassessed. Patient is alert, oriented x 3, equal unlabored respirations, skin warm/dry/pink. Vital Signs: 19:25 BP 162 / 61; Pulse 70; Resp 16; Temp 97.8; Pulse Ox 98% ; Weight 98.88 kg; Height 5 ft. rr5 4 in. (162.56 cm); Pain 3/10; 20:00 BP 139 / 67; Pulse 62; Resp 18; Pulse Ox 99% on R/A; Pain 1/10; jb4 21:35 BP 153 / 84; Pulse 61; Resp 13; Pulse Ox 97% on R/A; jb4 22:30 BP 133 / 77; Pulse 60; Resp 17; Pulse Ox 96% on R/A; jb4 23:30 BP 124 / 99; Pulse 66; Resp 17; Pulse Ox 98% on R/A; jb4 19:25 Body Mass Index 37.42 (98.88 kg, 162.56 cm) rr5 ED Course: 19:16 Patient arrived in ED. es 19:17 Tony Juarez MD is Private Physician. es 19:22 Macario Sheehan MD is Attending Physician. tw4 19:28 Triage completed. rr5 19:30 Arm band placed on right wrist. rr5 19:30 EKG done, by ED staff, reviewed by Macario Sheehan MD. rr5 19:45 Patient has correct armband on for positive identification. Bed in low position. Call jb4 light in reach. Side rails up X 1. school lunch monitor on. Pulse ox on. NIBP on. 19:45 Patient maintains SpO2 saturation greater than 95% on room air. jb4 19:49 XRAY Chest (1 view) In Process Unspecified. EDMS 19:57 Angi Macdonald, RN is Primary Nurse. lp1 20:00 Initial lab(s) drawn, by al, sent to lab. Inserted saline lock: 18 gauge in right jb4 antecubital area, using aseptic technique. Blood collected. 20:36 Tony Juarez MD is Hospitalizing Provider. tw4 23:37 No provider procedures requiring assistance completed. Patient admitted, IV remains in jb4 place. Administered Medications: 20:19 Not Given (Pt blood pressure decreased, reports having almost no pain now): Nitro-Bid rr5 Ointment 2 % 0.5 inches Transdermal once 22:10 Drug: Tylenol 1000 mg Route: PO; jb4 23:00 Follow up: Response: No adverse reaction; Pain is decreased jb4 Outcome: 20:36 Decision to Hospitalize by Provider. tw4 23:37 Admitted to Tele accompanied by nurse, via stretcher, room 405, with chart. jb4 23:37 Condition: stable 23:37 Discharge instructions given to patient, Instructed on the need for admit, Demonstrated understanding of instructions. 23:55 Patient left the ED. jb4 Signatures: Dispatcher [employer] EDKS Karin Rincon Laura, RN RN lp1 Felix Birmingham RN RN jb4 Macario Sheehan MD MD tw4 Donell Vegas RN RN rr5 Corrections: (The following items were deleted from the chart) 20:36 19:45 General: Appears in no apparent distress. comfortable, Behavior is calm, jb4 cooperative, appropriate for age, rr5 20:36 19:45 Pain: Complains of pain in chest Pain does not radiate. Pain currently is 1 out jb4 of 10 on a pain scale. Quality of pain is described as pressure, Pain began this morning rr5 20:36 19:45 Neuro: Level of Consciousness is awake, alert, obeys commands, Oriented to jb4 person, place, time, situation, rr5 20:36 19:45 Cardiovascular: Patient's skin is warm and dry. Rhythm is sinus rhythm rr5 jb4 20:36 19:45 Respiratory: Airway is patent Respiratory effort is even, unlabored, Respiratory jb4 pattern is regular, symmetrical, rr5 20:36 19:45 GI: No signs and/or symptoms were reported involving the gastrointestinal system. jb4 rr5 20:36 19:45 : No signs and/or symptoms were reported regarding the genitourinary system. rr5jb4 20:36 19:45 EENT: No signs and/or symptoms were reported regarding the EENT system. rr5 jb4 20:36 19:45 Derm: Skin is intact, Skin is pink, warm \T\ dry. rr5 jb4 20:36 19:45 Musculoskeletal: Circulation, motion, and sensation intact. Range of motion: jb4 intact in all extremities, rr5 20:36 20:00 BP 139 / 67; Pulse 62bpm; Resp 18bpm; Pulse Ox 99% RA; Pain 1/10; rr5 jb4 20:37 19:45 Patient has correct armband on for positive identification. Bed in low position. jb4 Call light in reach. Side rails up X 1. rr5 20:37 19:45 Pulse ox on. NIBP on. rr5 jb4 20:37 19:45 Patient maintains SpO2 saturation greater than 95% on room air. rr5 jb4 20:37 20:00 Inserted saline lock: 18 gauge in right antecubital area, using aseptic jb4 technique. Blood collected. rr5 20:37 20:00 Initial lab(s) drawn, by me, sent to lab. rr5 jb4
--- NOTE | 2020-08-10 20:37 | EDPHYS ---
Physician Documentation [facility] Name: Jaspal Armstrong Age: 69 yrs Sex: Male : 1950 Arrival Date: 08/10/2020 Time: 19:16 Bed 7 Private MD: Tony Juarez ED Physician Macario Sheehan HPI: 08/10 19:35 This 69 yrs old Male presents to ER via Ambulatory with complaints of Chest tw4 Tightness. 19:35 The patient or guardian reports chest pain that is located primarily in the anterior tw4 chest wall. Onset: today. The pain does not radiate. Duration: The patient or guardian reports a single episode. Severity of pain: At its worst the pain was moderate in the emergency department the pain is unchanged. Historical: - Allergies: 19:30 No Known Allergies; rr5 - Home Meds: 19:30 Aspirin Oral [Active]; rr5 - PMHx: 19:30 Gastric Reflux; heart disease; Hyperlipidemia; Prostate Cancer; rr5 - PSHx: 19:30 Heart stents; prostate removal; spinal cord surgery; rr5 - Immunization history:: Adult Immunizations up to date, Client reports receiving the 2nd dose of the Covid vaccine, Date received: June 2020. - Social history:: Smoking status: unknown. ROS: 19:35 Constitutional: Negative for fever, chills, and weight loss, Eyes: Negative for injury, tw4 pain, redness, and discharge, Respiratory: Negative for shortness of breath, cough, wheezing, and pleuritic chest pain, Abdomen/GI: Negative for abdominal pain, nausea, vomiting, diarrhea, and constipation. 19:35 MS/Extremity: Negative for injury and deformity, Skin: Negative for injury, rash, and discoloration, Neuro: Negative for headache, weakness, numbness, tingling, and seizure. 19:35 Cardiovascular: Positive for chest pain, Negative for edema, orthopnea, palpitations. Exam: 19:35 Constitutional: This is a well developed, well nourished patient who is awake, alert, tw4 and in no acute distress. Head/Face: Normocephalic, atraumatic. Chest/axilla: Normal chest wall appearance and motion. Nontender with no deformity. No lesions are appreciated. Cardiovascular: Regular rate and rhythm with a normal S1 and S2. No gallops, murmurs, or rubs. Normal PMI, no JVD. No pulse deficits. Respiratory: Lungs have equal breath sounds bilaterally, clear to auscultation and percussion. No rales, rhonchi or wheezes noted. No increased work of breathing, no retractions or nasal flaring. Abdomen/GI: Soft, non-tender, with normal bowel sounds. No distension or tympany. No guarding or rebound. No evidence of tenderness throughout. Back: No spinal tenderness. No costovertebral tenderness. Full range of motion. MS/ Extremity: Pulses equal, no cyanosis. Neurovascular intact. Full, normal range of motion. Neuro: Awake and alert, GCS 15, oriented to person, place, time, and situation. Cranial nerves II-XII grossly intact. Motor strength 5/5 in all extremities. Sensory grossly intact. Cerebellar exam normal. Normal gait. Vital Signs: 19:25 BP 162 / 61; Pulse 70; Resp 16; Temp 97.8; Pulse Ox 98% ; Weight 98.88 kg; Height 5 ft. rr5 4 in. (162.56 cm); Pain 3/10; 20:00 BP 139 / 67; Pulse 62; Resp 18; Pulse Ox 99% on R/A; Pain 1/10; jb4 21:35 BP 153 / 84; Pulse 61; Resp 13; Pulse Ox 97% on R/A; jb4 22:30 BP 133 / 77; Pulse 60; Resp 17; Pulse Ox 96% on R/A; jb4 23:30 BP 124 / 99; Pulse 66; Resp 17; Pulse Ox 98% on R/A; jb4 19:25 Body Mass Index 37.42 (98.88 kg, 162.56 cm) rr5 MDM: 20:28 Patient medically screened. tw4 04 02:18 Differential diagnosis: acute myocardial infarction, Cholelithiasis costochondritis, tw4 esophagitis, gastritis, pulmonary embolus, stable angina. HEART Score: History: Highly Suspicious (2), ECG: Non specific repolarization disturbance / LBTB / PM (1), Age: > or = 65 years (2), Risk Factors: 1 or 2 risk factors (1), [Hypertension] [DM] Troponin: < or = 1 x Normal Limit (0). HEART Score: Total Score = 6. The patient was given aspirin in the Emergency Department. Data reviewed: vital signs, nurses notes. Data interpreted: Pulse oximetry: Interpretation:. Counseling: I had a detailed discussion with the patient and/or guardian regarding: the historical points, exam findings, and any diagnostic results supporting the discharge/admit diagnosis, lab results, radiology results. Special discussion: I discussed with the patient/guardian in detail that at this point there is no indication for admission to the hospital. It is understood, however, that if the symptoms persist or worsen the patient needs to return immediately for re-evaluation. 08/10 19:30 Order name: Basic Metabolic Panel; Complete Time: 20:52 tw4 08/10 20:52 Interpretation: Normal except: CL 110; GFR 83; CA 8.4. tw4 08/10 19:30 Order name: CBC with Diff; Complete Time: 20:52 tw4 08/10 20:52 Interpretation: Within normal limits. 08/10 19:30 Order name: LFT's; Complete Time: 20:52 tw4 08/10 20:52 Interpretation: Within normal limits. 08/10 19:30 Order name: Magnesium; Complete Time: 20:52 tw4 08/10 20:53 Interpretation: Within normal limits: MG 2.2. 4 08/10 19:30 Order name: NT PRO-BNP; Complete Time: 20:52 tw4 08/10 20:53 Interpretation: Within normal limits: NT PRO-BNP 27. tw4 08/10 19:30 Order name: PT-INR; Complete Time: 20:52 tw4 08/10 20:53 Interpretation: Within normal limits: PT 11.9. tw4 08/10 19:30 Order name: Troponin (emerg Dept Use Only); Complete Time: 20:52 tw4 08/10 20:53 Interpretation: Within normal limits: TROPED < 0.02. tw4 08/10 21:02 Order name: COVID-19 : Document "Date of Symptom Onset" if Symptomatic. em 08/10 21:27 Order name: Basic Metabolic Panel EDTX 08/10 21:27 Order name: Basic Metabolic Panel EDTX 08/10 21:27 Order name: Troponin I EDTX 08/10 21:27 Order name: Troponin I [facility] 08/10 21:27 Order name: Troponin I [facility] 08/10 21:27 Order name: CBC with Automated Diff EDMS 08/10 19:30 Order name: XRAY Chest (1 view); Complete Time: 20:52 tw4 08/10 19:30 Order name: EKG; Complete Time: 19:30 tw4 08/10 19:30 Order name: Cardiac monitoring; Complete Time: 20:10 tw4 08/10 19:30 Order name: EKG - Nurse/Tech; Complete Time: 19:34 tw4 08/10 19:30 Order name: IV Saline Lock; Complete Time: 20:10 tw4 08/10 19:30 Order name: Labs collected and sent; Complete Time: 20:10 tw4 08/10 19:30 Order name: O2 Per Protocol; Complete Time: 20:09 tw4 08/10 21:27 Order name: CONS Physician Consult EDTX 08/10 21:27 Order name: EKG Electrocardiogram EDTX 08/10 21:27 Order name: EKG Electrocardiogram EDTX 08/10 21:27 Order name: EKG Electrocardiogram EDTX 08/10 21:27 Order name: EKG Electrocardiogram EDTX 08/10 21:27 Order name: CBC with Automated Diff EDTX 08/10 23:07 Order name: SARS-COV-2 RT PCR EDTX 08/10 19:30 Order name: O2 Sat Monitoring; Complete Time: 20:10 tw4 Administered Medications: 08/10 20:19 Not Given (Pt blood pressure decreased, reports having almost no pain now): Nitro-Bid rr5 Ointment 2 % 0.5 inches Transdermal once 22:10 Drug: Tylenol 1000 mg Route: PO; jb4 23:00 Follow up: Response: No adverse reaction; Pain is decreased jb4 Disposition: 08/10/20 20:36 Hospitalization ordered by Tony Juarez for Inpatient Admission. Preliminary diagnosis is Angina pectoris. - Bed requested for Telemetry/MedSurg (Inpatient). - Status is Inpatient Admission. jb4 - Condition is Stable. - Problem is new. - Symptoms have improved. Signatures: Dispatcher [employer] EDMS Vanessa Abbott, PEACE RN Felix Birmingham RN RN jb4 Macario Sheehan MD MD tw4 Donell Vegas RN RN rr5 Corrections: (The following items were deleted from the chart) 23:26 20:36 Hospitalization Ordered by Tony Juarez MD for Inpatient Admission. Preliminary cg diagnosis is Angina pectoris. Bed requested for Telemetry/MedSurg (Inpatient). Status is Inpatient Admission. Condition is Stable. Problem is new. Symptoms have improved. tw4 23:55 23:26 08/10/2020 20:36 Hospitalization Ordered by Tony Juarez MD for Inpatient jb4 Admission. Preliminary diagnosis is Angina pectoris. Bed requested for Telemetry/MedSurg (Inpatient). Status is Inpatient Admission. Condition is Stable. Problem is new. Symptoms have improved. cg
[2020-08-10 20:47] LABS: ALT/SGPT 26 U/L (12-78); AST/SGOT 16 U/L (15-37); Albumin 3.5 g/dL (3.4-5.0); Alkaline Phosphatase 92 U/L (45-117); BUN Blood Urea Nitrogen 11 mg/dL (7-18); Bicarbonate 29 mmol/L (21-32); Bilirubin Direct 0.1 mg/dL (0-0.2); Bilirubin Total 0.3 mg/dL (0.2-1.0); Glucose Level 102 mg/dL (74-106); Magnesium 2.2 mg/dL (1.8-2.4); NT PRO-BNP 27 pg/mL (<125); Potassium 3.5 mmol/L (3.5-5.1); Protein, Total 6.8 g/dL (6.4-8.2); Sodium Level 144 mmol/L (136-145); Troponin (Emerg Dept Use Only) < 0.02 ng/mL (0.0-0.045)
[2020-08-10] MEDS ORDERED: ACETAMINOPHEN 500 MG TAB ONE (22:24)
[2020-08-11 00:25] VITALS: BMI 37.8
[2020-08-11] MEDS ORDERED: ONDANSETRON 4 MG/2 ML VIAL IV PRN (01:12)
[2020-08-11] MEDS: ZOLPIDEM TARTRATE 5 MG TABLET PO SCH ×2 (01:36→20:53)
[2020-08-11 03:45] LABS: Basophils % 0.9 % (0-1.3); Hematocrit 41.9 % (39.6-49.0); Lymphocytes % 30.1 % (15.3-44.8); MPV 8.8 fL (7.6-11.3)
[2020-08-11 04:09] LABS: Potassium 4.1 mmol/L (3.5-5.1)
--- NOTE | 2020-08-11 08:56 | EKG ---
Test Date: 2020-08-10 Test Time: 19:24:47 [employer] Observations Chief Scientist: RR MEASUREMENT RESULTS: Intervals: Rate: 67 IN: 144 QRSD: 104 QT: 390 QTc: 412 [place]: P: 13 IN: 144 QRS: -17 T: 18 INTERPRETIVE STATEMENTS: Normal sinus rhythm Incomplete right bundle branch block Borderline ECG Compared to ECG 08/07/2020 11:09:01 Incomplete right bundle-branch block now present Sinus bradycardia no longer present Electronically Signed On 08-11-20 08:55:16 CDT by Rj Elder
[2020-08-11] MEDS: ASPIRIN EC 81 MG TAB PO SCH (09:14)
[2020-08-11] MEDS ORDERED: HEPA 1000U/500MLS 2,000 UNIT/1,000 ML BAG IV ONE (12:06)
[2020-08-11] MEDS ORDERED: LIDOCAINE 1% 20 ML MDV ONE (12:07)
[2020-08-11] MEDS ORDERED: VERAPAMIL HCL 10 MG/4 ML VIAL IV ONE (14:20)
[2020-08-11] MEDS ORDERED: HEPARIN 5000 UNIT/ML 1 ML VIAL ONE ×2 (14:20→16:14)
[2020-08-11] MEDS ORDERED: FENTANYL CITR 100 MCG/2 ML ONE ×2 (14:20→16:14)
[2020-08-11] MEDS ORDERED: ATROPINE SULF 1 MG/10 ML SYR IV ONE ×2 (14:21→16:12)
[2020-08-11] MEDS ORDERED: MIDAZOLAM HCL 2 MG/2 ML INJ ONE ×2 (14:21→16:14)
[2020-08-11] MEDS ORDERED: NA CHLORIDE 0.9% 500 ML ONE (16:44)
[2020-08-11] MEDS ORDERED: HEPA 1000U/500MLS 1,000 UNIT/500 ML BAG IV ONE ×2 (17:03→17:42)
[2020-08-11] MEDS ORDERED: NITROGLYCERIN 0.4 MG/TAB SL ONE (17:37)
[2020-08-11] MEDS ORDERED: TICAGRELOR 90 MG TABLET PO ONE (17:42)
[2020-08-11] MEDS: ACETAMINOPHEN 500 MG TAB PO PRN (20:52)
--- NOTE | 2020-08-11 22:37 | OP ---
Date of Procedure: 08/11/2020 Surgeon: CHRISTINE ARCEO Procedure Performed: 1.Selective coronary angiogram. 2.PCI of severe mid RCA stenosis using a 3.5 x 20 mm Synergy drug-eluting stent overlapped proximall y with another stent 3.5 x 12 mm, inflated to a very high pressure of size of 4.0. Indication: Unstable angina. Access: Right femoral artery 6-[place], closed with 6-[place] Angio-Seal. Complications: None. Bleeding: Less than 10 mL. Description Of Procedure: After risks, benefits, and alternatives were explained, the patient agreed to proceed and signed informed consent. The patient was brought in the cardiac catheterization [facility], prepped and draped in usual sterile fashion. We accessed the right femoral artery under fluo roscopy and ultrasound guidance using micropuncture kit and placed 6-[place] sheath. I took a 6-[place] JL4 catheter into the aortic root, engaged left main, and took standard views and then too k a 6-[place] JR4 guide into the aortic root, engaged the RCA and took standard views. Intervention Details: The patient was given systemic heparin to assure ACT level above 250 mg and he was given a low dose of Brilinta 180 mg. Subsequently, I took a short run-through wire into the RCA across the stenosis. Lesion was redilated using 3.0 x 50 mm Compliant balloon to high pressure, and then after successful expansion, we placed a 3.5 x 20 mm Synergy drug-eluting stent across the steno sis. There was a hazy area proximally of the RCA, so placed another stent 3.5 x 12 mm to overlap wit h the first one and the results were excellent with 0% residual stenosis and RY-3 flow. No complic ations. Guide was removed. Sheath was removed and 6-[place] Angio-Seal was deployed for hemostasis. The patient tolerated the procedure very well. Findings: 1.Left main, moderate size, mild disease, 10% stenosis. 2.LAD, patent proximal stent, otherwise no significant disease. 3.Left circumflex, patent proximal stent. No other disease. 4.RCA mid 80% stenosis which was reason for symptoms, status post successful PCI as above. Conclusion: Severe mid RCA stenosis, status post PCI as above. Plan: Brilinta, aspirin, high-dose statin, and follow up in the office 4 weeks post discharge. SR/MODL Voice ID: [id number] Report ID: [id number]
--- NOTE | 2020-08-12 08:11 | EKG ---
Test Date: 2020-08-11 Test Time: 10:07:17 Supervisor Taping: CHARO MEASUREMENT RESULTS: Intervals: Rate: 55 AR: 144 QRSD: 100 QT: 406 QTc: 388 [place]: P: 20 AR: 144 QRS: -13 T: -2 INTERPRETIVE STATEMENTS: Sinus bradycardia Incomplete right bundle branch block Nonspecific T wave abnormality Abnormal ECG Compared to ECG 08/10/2020 19:24:47 T-wave abnormality now present Sinus rhythm no longer present Electronically Signed On 08-12-20 08:08:24 CDT by Rj Elder
[2020-08-12] MEDS ORDERED: TICAGRELOR 90 MG TABLET PO SCH (09:00)
[2020-08-12] MEDS: ASPIRIN EC 81 MG TAB PO SCH (10:14)
[2020-08-12] MEDS: ACETAMINOPHEN 500 MG TAB PO PRN (10:14)
[2020-08-12 15:10] VITALS: O2SAT 92
[2020-08-12 17:14] VITALS: BP 118/69; TEMP 98.1
--- NOTE | 2020-08-12 22:08 | PN ---
Date of Progress Note: 08/12/2020 The patient seems fine this afternoon post stent from my perspective to discharge when okay with card iologist as far as his situation in regard to COVID. The patient was diagnosed with positive PCR in April 08. He had the vaccine in May, was then tested negative prior to this for stent 7-10 d ays ago. Came back in the ER due to some chest and breathing problems and was reported as positive a nd then admitted to 4th floor for preparation for stent the next day. Repeated the PCR was negative and discussed therefore with the labs in [place] and the sensitivity was the issue. It was clarified as 2-3 were well below the dylon of positivity, 1 positive, and 1 was borderline, therefore sent as a positive. It was nowhere near the numbers commonly associated with disease being infectious. He th erefore underwent the procedure basically uneventfully. HR/MODL Voice ID: [id number] Report ID: [id number]
== END 2020-08-12 15:36 | disposition home or self-care (01) | DRG 247 ==
LOC: ER 19:11 → ERHOLD 21:25 → 4TH 23:47 → 2ND 08-11 18:35
PROVIDERS: ADMIT Family Medicine; ATTEND Family Medicine
PROC: 027035Z Dilation of Coronary Artery, One Artery with Two Drug-eluting Intraluminal Devices, Percutaneous Approach (ICD-10-PCS; principal; 2020-08-11)
PROC: 4A023N7 Measurement of Cardiac Sampling and Pressure, Left Heart, Percutaneous Approach (ICD-10-PCS; 2020-08-11)
PROC: B2111ZZ Fluoroscopy of Multiple Coronary Arteries using Low Osmolar Contrast (ICD-10-PCS; 2020-08-11)
DX: I25.110 Atherosclerotic heart disease of native coronary artery with unstable angina pectoris (principal); K21.9 Gastro-esophageal reflux disease without esophagitis; I45.10 Unspecified right bundle-branch block; E78.2 Mixed hyperlipidemia; I65.23 Occlusion and stenosis of bilateral carotid arteries; Z95.5 Presence of coronary angioplasty implant and graft; Z85.46 Personal history of malignant neoplasm of prostate; Z79.899 Other long term (current) drug therapy; Z82.49 Family history of ischemic heart disease and other diseases of the circulatory system
CPT/HCPCS: 36415; 71045; 80048; 80076; 83735; 83880; 84484; 85025; 85347; 85610; 93005; 93454; 99285; C1725; C1760; C1893; C9600; J1644; J2250; J2405; J3010; J7040; U0003

== ENCOUNTER 2023-08-09 10:15 | Emergency (ER) | payer MEDICARE ==
[2023-08-09] MEDS ORDERED: ACETAMINOPHEN 500 MG TAB ONE (10:57)
[2023-08-09] MEDS ORDERED: DIAZEPAM 5 MG TABLET ONE (10:58)
[2023-08-09] MEDS ORDERED: LIDOCAINE 4% PATCH ONE (10:58)
[2023-08-09] MEDS ORDERED: KETOROLAC 30 MG/ML INJ ONE (10:58)
--- NOTE | 2023-08-09 11:47 | RAD REPORT ---
EXAM DESCRIPTION: RAD - Lumbar Spine 3 Views - 08/09/2023 11:39 am CLINICAL HISTORY: back pain COMPARISON: No comparisons FINDINGS/IMPRESSION: No acute fracture. No malalignment. Scattered mild endplate spurring. Diffuse m ild disc height loss also present. Surgical changes in the anatomic pelvis. Aortic atherosclerosis.
--- NOTE | 2023-08-09 12:56 | ER ---
Nurse's Notes [facility] Name: Jaspal Armstrong Age: 72 yrs Sex: Male : 1950 Arrival Date: 08/09/2023 Time: 10:15 Bed 14 Private MD: Diagnosis: Low back pain Presentation: 08/08 10:20 Chief complaint: Patient states: Left low back pain for 2 weeks, getting worse. Ok nj1 while laying down, needs assist to get up. Denies injury. Has been taking left over tramadol (last dose yesterday) and flexeril (last dose this morning) with no significant relief. Denies urinary problems. 10:20 Coronavirus screen: Vaccine status: Patient reports receiving the 2nd dose of the covid nj1 vaccine. Ebola Screen: Patient denies travel to an Ebola-affected area in the 21 days before illness onset. Initial Sepsis Screen: Does the patient meet any 2 criteria? No. Patient's initial sepsis screen is negative. Does the patient have a suspected source of infection? No. Patient's initial sepsis screen is negative. Risk Assessment: Do you want to hurt yourself or someone else? Patient reports no desire to harm self or others. Onset of symptoms was July 2023. 10:20 Method Of Arrival: Ambulatory banner 10:20 Acuity: MARSHALL 3 nj1 Historical: - Allergies: 10:29 No Known Allergies; nj1 - PMHx: 10:29 Gastric Reflux; heart disease; Hyperlipidemia; Prostate Cancer; Hypertensive disorder; nj1 Coronary atherosclerosis; - PSHx: 10:29 Stented artery; nj1 - Immunization history:: Client reports receiving the 2nd dose of the Covid vaccine. - Infectious Disease History:: Denies. - Social history:: Smoking status: Patient denies any tobacco usage or history of. Screenin:[address] [facility] ED Fall Risk Assessment (Adult) History of falling in the last 3 months, db including since admission No falls in past 3 months (0 pts) Confusion or Disorientation No (0 pts) Intoxicated or Sedated No (0 pts) Impaired Gait No (0 pts) Mobility Assist Device Used No (0 pt) Altered Elimination No (0 pt) Score/Fall Risk Level 0 - 2 = Low Risk Oriented to surroundings, Maintained a safe environment. Abuse screen: Denies threats or abuse. Denies injuries from another. Nutritional screening: No deficits noted. Tuberculosis screening: No symptoms or risk factors identified. Assessment: 10:27 Reassessment: No changes from previously documented assessment. Patient and/or family db updated on plan of care and expected duration. Pain level reassessed. Patient is alert, oriented x 3, equal unlabored respirations, skin warm/dry/pink. General: Appears in no apparent distress. comfortable, Behavior is calm, cooperative. Pain: Complains of pain in back. Neuro: Level of Consciousness is awake, alert, obeys commands, Oriented to person, place, time, situation. Respiratory: Airway is patent Respiratory effort is even, unlabored, Respiratory pattern is regular, symmetrical. 11:00 Reassessment: Patient appears in no apparent distress at this time. Patient and/or db family updated on plan of care and expected duration. Pain level reassessed. Patient is alert, oriented x 3, equal unlabored respirations, skin warm/dry/pink. 12:00 Reassessment: Patient appears in no apparent distress at this time. Patient and/or db family updated on plan of care and expected duration. Pain level reassessed. Patient is alert, oriented x 3, equal unlabored respirations, skin warm/dry/pink. 13:20 Reassessment: Patient appears in no apparent distress at this time. Patient and/or db family updated on plan of care and expected duration. Pain level reassessed. Patient is alert, oriented x 3, equal unlabored respirations, skin warm/dry/pink. Reassessment: Patient states feeling better. Patient states symptoms have improved. General: Appears in no apparent distress. comfortable. Vital Signs: 10:20 BP 154 / 83; Pulse 71; Resp 17; Temp 97(TE); Pulse Ox 96% on R/A; Weight 97.52 kg; nj1 Height 5 ft. 4 in. ; Pain 10/10; 11:00 BP 150 / 74; Pulse 68; Resp 18; Pulse Ox 97% on R/A; db 13:10 BP 140 / 99; Pulse 63; Resp 16; Temp 97.9; Pulse Ox 97% on R/A; db 10:20 Body Mass Index 36.90 (97.52 kg, 162.56 cm) banner 10:20 Pain Scale: Adult banner ED Course: 10:24 Patient arrived in ED. iw 10:26 Nielsen, Gaviota, RN is Primary Nurse. db 10:29 Triage completed. nj1 10:32 Arm band placed on. nj1 10:34 Yusef Howell MD is Attending Physician. ec2 10:53 Lumbar Spine (3 Views) XRAY Sent. db 11:34 Patient moved to radiology. db 11:41 Lumbar Spine (3 Views) XRAY In Process Unspecified. EDMS 13:20 Patient has correct armband on for positive identification. Bed in low position. Call db light in reach. Side rails up X 1. Provided Education on: DISCHARGE AND FOLLOWUP . Pulse ox on. NIBP on. 13:20 No provider procedures requiring assistance completed. Patient did not have IV access db during this emergency room visit. Administered Medications: 11:08 Drug: Diazepam PO 10 mg PO once Route: PO; db 12:30 Follow up: Response: No adverse reaction db 11:08 Drug: Lidoderm Topical Patch 5 % (700 mg/patch) 1 patches Topical once; leave on for 12 db hours; cover most painful area; may cut into smaller pieces Route: Topical; Site: affected area; 12:30 Follow up: Response: No adverse reaction db 11:08 Drug: Acetaminophen PO 1000 mg PO once Route: PO; db 12:30 Follow up: Response: No adverse reaction db 11:12 Drug: Ketorolac IM 15 mg IM once Route: IM; Site: left deltoid; db 12:30 Follow up: Response: No adverse reaction db Medication: 13:20 VIS not applicable for this client. db Outcome: 12:55 Discharge ordered by . ec2 13:20 Discharged to home ambulatory, db 13:20 Condition: stable 13:20 Discharge instructions given to patient, family, Instructed on discharge instructions, follow up and referral plans. Prescriptions given X 1, 13:23 Patient left the ED. db Signatures: Dispatcher [employer] Niurka Guillen RN RN Gaviota Nielsen, PEACE HAND db Ryanne Russell RN RN nj1 Yusef Howell MD MD 2
--- NOTE | 2023-08-09 12:56 | EDPHYS ---
Physician Documentation [facility] Name: Jaspal Armstrong Age: 72 yrs Sex: Male : 1950 Arrival Date: 08/09/2023 Time: 10:15 Bed 14 Private MD: ED Physician Yusef Howell HPI: 08/08 10:54 This 72 yrs old Male presents to ER via Ambulatory with complaints of Back ec2 Pain. 10:54 Patient arrives today for evaluation of left lower back pain. Patient reports ec2 significant pain for the past several weeks, states that he first noticed it when he strained his lower back try to get out of the car. Denies any falls or injuries. Patient reports no red flag symptoms. Patient reports no urinary complaints. Patient reports pain is worse with movement.. Historical: - Allergies: 10:29 No Known Allergies; nj1 - PMHx: 10:29 Gastric Reflux; heart disease; Hyperlipidemia; Prostate Cancer; Hypertensive disorder; nj1 Coronary atherosclerosis; - PSHx: 10: Stented artery; nj1 - Immunization history:: Client reports receiving the 2nd dose of the Covid vaccine. - Infectious Disease History:: Denies. - Social history:: Smoking status: Patient denies any tobacco usage or history of. ROS: 10:54 Constitutional: as per hpi ec2 Exam: 10:54 Constitutional: GEN: NAD Head: atraumatic Eyes: EOMI Ears: External ears are ec2 normal. CV: regular rate LUNGS: no respiratory distress ABD: non-distended SKIN: no evidence of rashes MSK: no evidence of trauma, left low back with reproducible TTP, no deformities, no crepitus. No C/T/L-spine TTP. NEURO: moves all extremities equally Vital Signs: 10:20 BP 154 / 83; Pulse 71; Resp 17; Temp 97(TE); Pulse Ox 96% on R/A; Weight 97.52 kg; nj1 Height 5 ft. 4 in. ; Pain 10/10; 11:00 BP 150 / 74; Pulse 68; Resp 18; Pulse Ox 97% on R/A; db 13:10 BP 140 / 99; Pulse 63; Resp 16; Temp 97.9; Pulse Ox 97% on R/A; db 10:20 Body Mass Index 36.90 (97.52 kg, 162.56 cm) nj1 10:20 Pain Scale: Adult nj1 MDM: 10:35 Patient medically screened. ec2 10:54 Data reviewed: vital signs. ED course: Patient arrives today for evaluation of left low ec2 back pain. Examination remarkable for reproducible left low back pain. Will obtain radiograph of the L-spine, suspect sciatica/MSK discomfort.. 12:54 ED course: Radiographs show no evidence of bony fracture. Will treat the patient's pain ec2 and have follow-up primary care doctor. Return precautions given.. 08/08 10:51 Order name: Lumbar Spine (3 Views) XRAY; Complete Time: 12:54 ec2 Administered Medications: 11:08 Drug: Diazepam PO 10 mg PO once Route: PO; db 12:30 Follow up: Response: No adverse reaction db 11:08 Drug: Lidoderm Topical Patch 5 % (700 mg/patch) 1 patches Topical once; leave on for 12 db hours; cover most painful area; may cut into smaller pieces Route: Topical; Site: affected area; 12:30 Follow up: Response: No adverse reaction db 11:08 Drug: Acetaminophen PO 1000 mg PO once Route: PO; db 12:30 Follow up: Response: No adverse reaction db 11:12 Drug: Ketorolac IM 15 mg IM once Route: IM; Site: left deltoid; db 12:30 Follow up: Response: No adverse reaction db Disposition Summary: 08/09/23 12:55 Discharge Ordered Notes: Location: Home ec2 Condition: Stable ec2 Diagnosis - Low back pain ec2 Followup: ec2 - With: Private Physician - When: - Reason: Re-evaluation by your physician Discharge Instructions: - Discharge Summary Sheet ec2 - Acute Back Pain, Adult ec2 Forms: - Medication Reconciliation Form ec2 - Thank You Letter ec2 - Antibiotic Education ec2 - Prescription Opioid Use ec2 - Patient Portal Instructions ec2 - Leadership Thank You Letter ec2 Prescriptions: - methocarbamol 500 mg Oral tablet - take 2 tablets ORAL route 4 times per day; 30 tablet; Refills: 0, Product ec2 Selection Permitted Signatures: Dispatcher [employer] Gaviota Zhou RN RN db Ryanne Russell RN RN nj1 Yusef Howell MD MD ec2
[2023-08-09 18:39] VITALS: BP 140/99; TEMP 97.9; O2SAT 97
== END 2023-08-09 13:23 | disposition home or self-care (01) ==
LOC: ER 10:15
DX: M54.50 Low back pain, unspecified (principal)
CPT/HCPCS: 72100; 96372; 99284; J2001

== ENCOUNTER 2023-09-02 06:38 | Day surgery (SDC) | payer MEDICARE ==
[2023-08-30 09:26] LABS: Absolute Eosinophils 0.1 K/uL (0-0.5); Absolute Monocytes 0.5 K/uL (0.1-1.3); Absolute Neutrophil 4.2 K/uL (1.8-8.0); Basophils % 0.4 % (0-1.3); Eosinophils % 1.4 % (0-4.4); Hematocrit 43.3 % (39.6-49.0); Hemoglobin 14.6 g/dL (13.6-17.9); Lymphocytes % 29.1 % (15.3-44.8); MCH 30.4 pg (27.0-35.0); MCHC 33.8 g/dL (32.0-36.0); MCV 89.9 fL (80-100); MPV 8.1 fL (7.6-11.3); Monocytes % 7.3 % (3.3-12.3); Neutrophils % 61.8 % (41.7-73.7); Nucleated Red Blood Cells % 0.2 % (0-0); Platelets 176 thou/uL (152-406); RBC Red Blood Cell Count 4.81 M/uL (4.33-5.43); Red Cell Distribution Width 14.1 % (12.1-15.2)
[2023-08-30 09:35] LABS: Anion Gap 4.1 mEq/L (5.0-15.0); Potassium 4.1 mEq/L (3.5-5.1)
[2023-08-30 14:21] LABS: PT Prothrombin Time 11.1 SECONDS (9.5-12.5); Protime INR 0.9
[2023-09-02] MEDS ORDERED: LIDOCAINE 2% MPF 5 ML VIAL ONE (07:03)
[2023-09-02] MEDS ORDERED: FENTANYL CITR 100 MCG/2 ML ONE (07:03)
[2023-09-02] MEDS ORDERED: propofoL 200 MG/20 ML VIAL IV ONE (07:03)
[2023-09-02] MEDS ORDERED: ONDANSETRON 4 MG/2 ML VIAL ONE (07:03)
[2023-09-02] MEDS ORDERED: MIDAZOLAM HCL 2 MG/2 ML INJ ONE (07:04)
[2023-09-02] MEDS: Ringers Lactate 1,000 ML IV ONE (07:25)
[2023-09-02] MEDS: CEFAZOLIN SODIUM 2 GM/VIAL ONE (08:10)
[2023-09-02] MEDS: BUPIVACAINE 0.25% PF 30 ML VIAL ONE (08:46)
[2023-09-02] MEDS ORDERED: dexAMETHasone 10 MG/ML VIAL ONE (08:50)
[2023-09-02] MEDS ORDERED: KETOROLAC 30 MG/ML INJ ONE (08:50)
--- NOTE | 2023-09-02 09:26 | P.BOP ---
Preoperative diagnosis: right knee medial meniscus tear Postoperative diagnosis: same, right knee lateral meniscus tear Primary procedure: right knee arthroscopic partial medial and lateral meniscectomies [employer] Mechanic: NONE,NONE Estimated blood loss: 3 cc Specimen: none Findings: see dictation Anesthesia: General Complications: None Implants: none Fluids & blood products: per anesthesia record; TT: 24 mins @ 300 mmHg Transferred to: Recovery Room Condition: Good
[2023-09-02] MEDS: HYDROCODONE/APAP 5/325 MG TAB ONE (10:34)
[2023-09-02 12:24] VITALS: BP 116/55; TEMP 97.2; O2SAT 94
== END 2023-09-02 10:50 | disposition home or self-care (01) ==
LOC: OR 06:38
PROVIDERS: ADMIT Orthopaedic Surgery Sports Medicine; ATTEND Orthopaedic Surgery Sports Medicine
PROC: 0SBC4ZZ Excision of Right Knee Joint, Percutaneous Endoscopic Approach (ICD-10-PCS; 2023-09-02)
PROC: 0SBC4ZZ Excision of Right Knee Joint, Percutaneous Endoscopic Approach (ICD-10-PCS; principal; 2023-09-02 08:00)
DX: S83.241A Other tear of medial meniscus, current injury, right knee, initial encounter (principal); S83.281A Other tear of lateral meniscus, current injury, right knee, initial encounter; M17.11 Unilateral primary osteoarthritis, right knee; M25.561 Pain in right knee; F41.9 Anxiety disorder, unspecified; I25.10 Atherosclerotic heart disease of native coronary artery without angina pectoris; E78.00 Pure hypercholesterolemia, unspecified; Z85.46 Personal history of malignant neoplasm of prostate
CPT/HCPCS: 85025; 80048; 36415; 85610; 85730; 29880; J2704; J2001; J2250; J3010; J1100; J2405; J7120

== ENCOUNTER 2024-09-07 13:58 | Emergency (ER) | payer OTHER ==
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
[2024-09-07 15:50] VITALS: BP 136/71; TEMP 97.8; O2SAT 99
== END 2024-09-07 15:25 | disposition home or self-care (01) ==
LOC: ER 13:58
DX: S13.4XXA Sprain of ligaments of cervical spine, initial encounter (principal)
CPT/HCPCS: 99283